=== PATIENT | female | born 1955 | race African-American/Black ===

== ENCOUNTER 2016-10-18 07:58 | Emergency (ER) | payer MEDICARE, MEDICAID ==
[2015-03-16 08:35] VITALS: BMI 28.9
[~2016-10-18 07:58] MED LIST: CARAFATE1 G PO; K-DUR20 MEQ PO; PEPCID20 MG PO; PRAVACHOL20 MG PO; XANAX0.5 MG PO; ZANAFLEX2 M1 PO
[2016-10-18 08:42] LABS: BASOPHILS 0.5 % (0.0-2.0); HEMATOCRIT 39.6 % (36.0-48.0); HEMOGLOBIN 12.4 g/dL (12-16); IMMATURE GRANULOCYTES 0.5 % (0-5); LYMPHOCYTES 22.5 % (15-50); MCH 21.5 pg (26.0-34.0); MCHC 31.3 g/dL (31.0-37.0); MCV 68.5 fL (80.0-100.0); MONOCYTES 7.3 % (2-11); NEUTROPHILS 65.2 % (40-80); PLATELET COUNT 349 10x3/uL (130-400); RBC 5.78 10x6/uL (4.00-5.40); RDW 16.2 % (11.5-14.5); WBC 5.8 10x3/uL (4.8-10.8)
[2016-10-18 09:05] LABS: ALBUMIN 3.7 g/dL (3.4-5.0); ALKALINE PHOSPHATASE 56 U/L (46-116); ALT (SGPT) 26 U/L (10-68); BILIRUBIN - TOTAL 0.27 mg/dL (0.2-1.3); CALC OSMOLALITY 286 mosm/kg (275-300); CALCIUM 9.3 mg/dL (8.5-10.1); CARBON DIOXIDE 26.9 mmol/L (21.0-32.0); CHLORIDE - SERUM 106 mmol/L (98-107); CREATININE - SERUM 1.2 mg/dL (0.6-1.3); GLUCOSE 118 mg/dL (74-106); POTASSIUM - SERUM 4.2 mmol/L (3.5-5.1); PROTEIN - SERUM 8.2 g/dL (6.4-8.2); SODIUM 144 mmol/L (136-145); UREA NITROGEN 9 mg/dL (7-18); eGFR NON AFRICAN AMERICAN 48 mL/min (90-120)
[2016-10-18 09:24] LABS: CREATINE KINASE 438 UL (21-215)
[2016-10-18 09:25] LABS: CKMB 2.4 U/L (0.0-3.6); TROPONIN-I < 0.017 ng/mL (0.000-0.060)
== END 2016-10-18 09:48 | disposition home or self-care (01) ==
LOC: D.ER 07:58
PROVIDERS: Family Medicine
DX: M54.12 Radiculopathy, cervical region (principal); F41.9 Anxiety disorder, unspecified; K21.9 Gastro-esophageal reflux disease without esophagitis; I10 Essential (primary) hypertension

== ENCOUNTER → 2016-11-22 18:03 | Outpatient (CLI) | payer MEDICARE, MEDICAID ==
[2015-03-16 08:35] VITALS: BMI 28.9
[2016-11-26 21:07] LABS: CHLAMYDIA TRACHOMATIS, NAA Negative (Negative)
== END | disposition home or self-care (01) ==
LOC: D.LABREF 18:03
PROVIDERS: Family Medicine
DX: Z20.9 Contact with and (suspected) exposure to unspecified communicable disease (principal)

== ENCOUNTER → 2016-12-09 08:53 | Outpatient (CLI) | payer MEDICARE, MEDICAID ==
[2015-03-16 08:35] VITALS: BMI 28.9
== END ==
LOC: D.MAMMO 08:53
DX: Z12.31 Encounter for screening mammogram for malignant neoplasm of breast (principal)

== ENCOUNTER → 2016-12-20 17:28 | Outpatient (CLI) | payer MEDICARE, MEDICAID ==
[2015-03-16 08:35] VITALS: BMI 28.9
== END | disposition home or self-care (01) ==
LOC: D.LABREF 17:28
DX: R30.0 Dysuria (principal)

== ENCOUNTER → 2016-12-27 13:54 | Outpatient (CLI) | payer MEDICARE, MEDICAID ==
[2015-03-16 08:35] VITALS: BMI 28.9
== END | disposition home or self-care (01) ==
LOC: D.LABREF 13:54
DX: R39.9 Unspecified symptoms and signs involving the genitourinary system (principal)

== ENCOUNTER → 2017-01-14 19:20 | Outpatient (CLI) | payer MEDICARE, MEDICAID ==
[2015-03-16 08:35] VITALS: BMI 28.9
== END | disposition home or self-care (01) ==
LOC: D.LABREF 19:20
DX: N39.0 Urinary tract infection, site not specified (principal)

== ENCOUNTER → 2017-02-21 18:00 | Outpatient (CLI) | payer MEDICARE, MEDICAID ==
[2015-03-16 08:35] VITALS: BMI 28.9
[2017-02-21 18:47] LABS: APPEARANCE HAZY (CLEAR); BILIRUBIN NEGATIVE (NEGATIVE); COLOR YELLOW (YELLOW); GLUCOSE NEGATIVE (NEGATIVE); KETONE NEGATIVE (NEGATIVE); LEUKOCYTE ESTERASE 2+ (NEGATIVE); NITRITE NEGATIVE (NEGATIVE); PROTEIN NEGATIVE (NEGATIVE); UROBILINOGEN NORMAL (NORMAL)
[2017-02-21 18:49] LABS: BACTERIA MANY /hpf (NONE SEEN); WHITE CELLS - URINE >50 /hpf (0-5)
== END | disposition home or self-care (01) ==
LOC: D.LABREF 18:00
PROVIDERS: Urology
DX: N39.0 Urinary tract infection, site not specified (principal)

== ENCOUNTER → 2017-03-07 19:01 | Outpatient (CLI) | payer MEDICARE, MEDICAID ==
[2015-03-16 08:35] VITALS: BMI 28.9
[2017-03-07 20:10] LABS: COLOR YELLOW (YELLOW)
[2017-03-07 20:11] LABS: APPEARANCE CLEAR (CLEAR); BILIRUBIN NEGATIVE (NEGATIVE); GLUCOSE NEGATIVE (NEGATIVE); KETONE NEGATIVE (NEGATIVE); LEUKOCYTE ESTERASE NEGATIVE (NEGATIVE); NITRITE NEGATIVE (NEGATIVE); PROTEIN NEGATIVE (NEGATIVE); UROBILINOGEN NORMAL (NORMAL)
== END | disposition home or self-care (01) ==
LOC: D.LABREF 19:01
PROVIDERS: Urology
DX: N39.0 Urinary tract infection, site not specified (principal)

== ENCOUNTER → 2017-03-12 19:22 | Outpatient (CLI) | payer MEDICARE, MEDICAID ==
[2015-03-16 08:35] VITALS: BMI 28.9
== END | disposition home or self-care (01) ==
LOC: D.LABREF 19:22
DX: N39.0 Urinary tract infection, site not specified (principal); N89.8 Other specified noninflammatory disorders of vagina

== ENCOUNTER → 2017-03-24 18:21 | Outpatient (CLI) | payer MEDICARE, MEDICAID ==
[2015-03-16 08:35] VITALS: BMI 28.9
== END | disposition home or self-care (01) ==
LOC: D.LABREF 18:21
DX: N39.0 Urinary tract infection, site not specified (principal)

== ENCOUNTER → 2018-01-28 08:02 | Outpatient (CLI) | payer MEDICARE, MEDICAID ==
[2015-03-16 08:35] VITALS: BMI 28.9
[~2018-01-28 08:02] MED LIST changes: +BACLOFEN10 MG PO; +BAYER CHEWABLE81 MG PO; +NORVASC5 MG PO; +OMEPRAZOLE20 M1 PO; +PLAVIX75 MG PO; +ZYRTEC10 MG PO
== END | disposition home or self-care (01) ==
LOC: D.CT 08:02
DX: R91.8 Other nonspecific abnormal finding of lung field (principal)

== ENCOUNTER 2018-03-04 08:48 | Outpatient (CLI) | payer MEDICARE, MEDICAID ==
[~2018-03-04] VITALS: Ht 157.5 cm; Wt 78.2 kg
--- NOTE | ~2018-03-04 | DS ---
PATIENT:SHAYLEE WILLS :53 MEDICAL RECORD: [id number] DISCHARGE SUMMARY ADMISSION DATE: 03/04/18 DISCHARGE DATE: 03/05/18 DATE OF DISCHARGE: 03/05/2018 DIAGNOSES: 1. Coronary artery disease. 2. Percutaneous transluminal coronary angioplasty stent of left anterior descending and right coronary artery this admission. 3. Hypertension. 4. Hyperlipidemia. HOSPITAL COURSE: Ms. Wills presents with anginal symptomatology, found to have disease of the LAD and RCA, underwent successful PTCA stent of both territories, was discharged home with the addition of aspirin and Plavix to her medical regimen. Will follow up with [facility] in 1 month. TRANSINT:[id number] Voice Confirmation ID: [id number] DOCUMENT ID: [id number] IVONNE CHAN MD at 1950 CC: [id number] DICTATION DATE: 03/05/18 1251 IMPORTER OR EXPORTER: 03/05/18 1302 DEP CLI 03/05/18 [address] [place] [address]
--- NOTE | ~2018-03-04 | HEMODYNAMI ---
PATIENT:SHAYLEE WILLS MEDICAL RECORD: [id number] : 53 LOCATION:D. D.2118 [facility]# [id number] ADMISSION DATE: 03/04/18 Generatedon:03/05/201812:56 Patient name: SHAYLEE WILLS Patient #: [id number] SSN: [id number] : 1955 Date of study: 03/05/2018 Page: Of Hemodynamic Procedure Report Patient Data Patient Demographics Procedure consent was obtained First Name: SHAYLEE Gender: Female Last Name: JOHANN : 1955 [facility] Initial: ARVIN Age: 62 year(s) Patient #: [id number] Race: Black SSN: [id number] Additional ID: [id number] Contact details Address: [address] [place] [address] ROAD State: [place] City: [place] Zip code: [address] Admission Admission Data Admission Date: 03/04/2018 Admission Time: 8:48 Arrival Date: 03/04/2018 Arrival Time: 8:48 Admit Source: Other Insurance Payor: Medicare, Room #: D.2118 Medicaid Procedure Procedure Types Cath Procedure PCI Procedure Coronary Stent Coronary Stent Initial Procedure Description Procedure Date Procedure Date: 03/05/2018 Procedure Start Time: 12:42 Procedure End Time: 12:49 Procedure Staff Name Function Abdiel Fernando MD Performing Physician Edel Barr RT Monitor Rick Rowland RT Scrub Celestina Yoder RN Nurse Procedure Data Cath Procedure Fluoroscopy Diagnostic fluoroscopy Total fluoroscopy Time: 1.1 time: 1.1 min min Diagnostic fluoroscopy Total fluoroscopy dose: 148 dose: 148 mGy mGy Contrast Material Contrast Material Type Amount (ml) Isovue 300 50 Entry Location Entry Primary Successful Side Size Upsize Upsize Entry Closure Succes sful Closure Location (Fr) 1 (Fr) 2 (Fr) Remarks Device Remarks Femoral Right 6 Fr Exoseal artery Short Estimated blood loss: 5 ml Procedure Complications No complications Procedure Medications Medication Administration Route Dosage Oxygen etCO2 Nasal cannula 2 l/min Solumedrol I.V. 125 mg Lidocaine 2% added to field 20 Heparin Flush Bag added to field 2 bags (1000units/500ml NS) 0.9% NaCl I.V. 100 ml/hr Pepcid I.V. 20 mg Versed I.V. 2 mg Fentanyl I.V. 100 mcg Versed I.V. 2 mg Fentanyl I.V. 100 mcg Heparin Bolus I.V. 4000 units Versed I.V. 0.5 mg Fentanyl I.V. 25 mcg Hemodynamics Rest Heart Rate: 96 (bpm) Snapshots Pre Cath Intra NCS Post Cath Vital Signs Time Heart Resp SPO2 etCO2 NIBP (mmHg) Rhythm Pain Sedation Rate (ipm) (%) (mmHg) Status Level (bpm) 11:57:27 10 96 0 No Cuff NSR 0 (11) 10(A) , No pain 12:01:34 103 24 96 0 157/88(144) NSR 0 (11) 10(A) , No pain 12:05:43 101 15 93 0 144/98(114) NSR 0 (11) 10(A) , No pain 12:09:46 92 14 96 34.5 138/96(112) NSR 0 (11) 10(A) , No pain 12:13:48 88 15 95 40.6 144/96(117) NSR 0 (11) 10(A) , No pain 12:17:52 87 15 96 27 141/96(108) NSR 0 (11) 10(A) , No pain 12:21:55 89 12 96 16.5 134/88(104) NSR 0 (11) 10(A) , No pain 12:25:59 88 15 93 0 123/85(107) NSR 0 (11) 10(A) , No pain 12:29:57 87 10 94 30.8 131/90(111) NSR 0 (11) 10(A) , No pain 12:33:56 88 15 97 14.2 130/89(108) NSR 0 (11) 10(A) , No pain 12:37:56 84 13 98 42.8 142/91(106) NSR 0 (11) 10(A) , No pain 12:42:02 88 14 94 0 115/85(108) NSR 0 (11) 9(A) , No pain 12:45:55 88 13 95 13 127/93(122) NSR 0 (11) 10(A) , No pain Medications Time Medication Route Dose Verified Delivered Reason Notes Effectiveness by by 12:04:47 Oxygen etCO2 2 Abdiel Buffie used for Nasal l/min Abdullahi Yoder RN procedure cannula 12:04:57 Solumedrol I.V. 125 Abdiel Buffie used for pt re ports mg Abdullahi Yoder RN procedure itching of the eyes and sneezing all day/night after [facility] procedure yesterday. 12:06:21 Lidocaine 2% added 20ml Abdiel Abdiel for local to vial Abdullahi Fernando MD anesthetic field 12:06:26 Heparin Flush added 2 Abdiel Abdiel used for Bag to bags Abdullahi Fernando MD procedure (1000units/500ml field NS) 12:06:41 0.9% NaCl I.V. 100 Abdiel Buffie Per physician ml/hr Abdullahi Yoder RN 12:09:54 Pepcid I.V. 20 mg Abdiel Oscar Per physician Abdullahi Yoder RN 12:38:23 Versed I.V. 2 mg Abdiel Buffie for sedation Abdullahi Yoder RN 12:38:30 Fentanyl I.V. 100 Abdiel Buffie for sedation mcg Abdullahi Yoder RN 12:41:33 Versed I.V. 2 mg Abdiel Buffie for sedation Abdullahi Yoder RN 12:41:37 Fentanyl I.V. 100 Abdiel Buffie for sedation mcg Abdullahi Yoder RN 12:43:50 Heparin Bolus I.V. 4000 Abdiel Buffie for verif ied units Abdullahi Yoder RN anticoagulation with dr fernando 12:46:00 Versed I.V. 0.5 Abdiel Buffie for sedation mg Abdullahi Yoder RN 12:46:04 Fentanyl I.V. 25 Abdiel Buffie for sedation mcg Abudllahi Yoder RN Procedure Log Time Note 11:38:59 Informed consent obtained and on chart 11:39:14 Diagnostic Cath Status : Elective 11:39:46 Edel Barr RT(R) sent for patient. Start room use. 11:39:46 Time tracking: Regular hours (M-F 7:00 - 5:00) 11:39:51 Plan of Care:Hemodynamics will remain stable., Cardiac rhythm will remain stable., Comfort level will be maintained., Respiratory function will remain adequate., Patient/ family verbilizes understanding of procedure., Procedure tolerated without complication., Recovers from procedure without complications.. 11:40:29 Admit Source: Other 11:40:35 Arrival Date: 03/04/2018 8:48:00 AM 11:40:43 Insurance Payor : Medicare, Medicaid 11:54:38 Patient received from PCU to [facility] 2 Alert and oriented. Tansferred to table in Supine position. 11:54:39 Warm blankets applied, and irwin hugger turned on for patient comfort. 11:54:40 Correct patient and procedure confirmed by team. 11:54:41 ECG and BP/O2 sat monitors applied to patient. 11:56:37 Vital chart was started 12:04:05 Baseline sample Acquired. 12:04:08 Rhythm: sinus rhythm 12:04:10 Full Disclosure recording started 12:04:13 H&P Date Dictated: 03/05/2018 Within 30 days and on chart.. 12:04:15 Pre-procedure instructions explained to patient. 12:04:16 Pre-op teaching completed and patient verbalized understanding. 12:04:17 Family in waiting room. 12:04:18 Patient NPO since Midnight. 12:04:20 Is the patient allergic to Iodine/contrast media? No. 12:04:21 Was the patient premedicated? No 12:04:22 Is patient on blood thinner?Yes 12:04:24 ACC The patient was administered the following blood thiners within the last 24 hours: ACCPlavix 12:04:26 Patient diabetic? No. 12:04:29 Previous problem with sedation/anesthesia? No ? 12:04:30 Snore? Yes 12:04:36 Sleep apnea? No 12:04:37 Deviated septum? No 12:04:38 Opens mouth fully? Yes 12:04:39 Sticks out tongue? Yes 12:04:40 Airway obstruction? No ? 12:04:44 Dentures? Yes in tight 12:04:47 Oxygen 2 l/min etCO2 Nasal cannula was administered by Celestina Yoder RN; used for procedure; 12:04:48 Pre procedure: right dorsailis pedis pulse 2+ Normal; easily identifiable; not easily obliterated 12:04:51 Pre procedure: left dorsailis pedis pulse 2+ Normal; easily identifiable; not easily obliterated 12:04:57 Solumedrol 125 mg I.V. was administered by Celestina Yoder RN; used for procedure; pt reports itching of the eyes and sneezing all day/night after [facility] procedure yesterday. 12:04:57 Patient pain scale 0/10 ?. 12:05:05 IV patent on arrival in left antecubital with 0.9% NaCl at [facility] 12:05:08 Lab results completed and on chart. 12:05:13 Right groin area was prepped with chlora-prep and draped in sterile fashion 12:05:14 Alarms reviewed by R. N. 12:05:14 Sharps counted by scrub and verified by R.N. 12:06:21 Lidocaine 2% 20ml vial added to field was administered by Abdiel Fernando MD; for local anesthetic; 12:06:26 Heparin Flush Bag (1000units/500ml NS) 2 bags added to field was administered by Abdiel Fernando MD; used for procedure; 12:06:41 0.9% NaCl 100 ml/hr I.V. was administered by Celestina Yoder RN; Per physician; 12:07:00 Use device set Radial Dx or PCI 12:07:01 ACIST Syringe (15871) opened to sterile field. 12:07:02 Medline Cath Pack ([id number]) opened to sterile field. 12:07:02 Bag Decanter (2002S) opened to sterile field. 12:07:03 DIAGNOSTIC WIRE .035 260cm J wire (557216) opened to sterile field. 12:07:03 ACIST Hand Control (36208) opened to sterile field. 12:07:04 ACIST Manifold (44456) opened to sterile field. 12:07:04 Tegaderm 4 x 4 (1626W) opened to sterile field. 12:07:34 CHOICE PT Extra Support 182cm wire ([id number]) opened to sterile field. 12:07:35 INFLATOR Merit BasixCompak (BX1912) opened to sterile field. 12:07:36 SHEATH Prelude 6Fr 0.035 ([id number]-3Z-81-035) opened to sterile field. 12:09:54 Pepcid 20 mg I.V. was administered by Celestina Yoder RN; Per physician; 12:11:12 Zero performed for pressure channel P1 12::19 Zero performed for pressure channel P1 12:37: Physician arrived 12:: --------ALL STOP TIME OUT------ 12::23 Final Timeout: patient, procedure, and site verified with staff and physician. All members of the team are in agreement. 12:37:24 Right groin site verified by team. 12:37:27 Physical assessment completed. ASA score P 2 - A patient with mild systemic disease as per Abdiel Fernando MD. 12:37:35 Sedation plan: IV Moderate Sedation Medication:Versed, Fentanyl 12:38:23 Versed 2 mg I.V. was administered by Celestina Yoder RN; for sedation; 12:38:30 Fentanyl 100 mcg I.V. was administered by Celestina Yoder RN; for sedation; 12:41:33 Versed 2 mg I.V. was administered by Celestina Yoder RN; for sedation; 12:41:37 Fentanyl 100 mcg I.V. was administered by Celestina Yoder RN; for sedation; 12:42:13 Procedure started. 12:42:54 Local anesthetic to right femoral artery with Lidocaine 2% by Abdiel Fernando MD.INITIAL ACCESS ONLY 12:43:09 A 6 Fr Short sheath was inserted into the Right Femoral artery 12:43:31 GUIDE 6FR HS II SH catheter ([id number]) opened to sterile field. 12:43:39 6 Fr hs 2 sh guide catheter was inserted over the wire 12:43:43 choice pt wire advanced. 12:43:50 Heparin Bolus 4000 units I.V. was administered by Celestina Yoder RN; for anticoagulation; verified with dr fernando 12:44:11 Wire advanced across lesion. 12:46:00 Versed 0.5 mg I.V. was administered by Celestina Yoder RN; for sedation; 12:46:02 Place stent Inflation Number: 1 A KIN RX 3.0 x 18 stent ([id number]) was prepped and advanced across the Mid RCA. The stent was deployed at 13 EVELIN for 0:10 (min:sec). 12:46:04 Fentanyl 25 mcg I.V. was administered by Celestina Yoder RN; for sedation; 12:46:45 Stent catheter was removed intact over wire. 12:46:46 Wire removed. 12:46:46 Guide catheter removed. 12:47:56 EXOSEAL 6Fr (EX600) opened to sterile field. 12:48:04 Sheath removed intact; hemostasis achieved with Exoseal to the Right Femoral artery. 12:48:05 Procedure ended.(Physican Out) 12:48:22 Fluoroscopy time 01.10 minutes. 12:48:26 Flurop Dose total: 148 12:48:26 Fluoroscopy dose: 148 mGy 12:48:29 Contrast amount:Isovue 300 50ml. 12:48:30 Sharps counted by scrub and verified by R.N. 12:48:34 Insertion/operative site no bleeding no hematoma. 12:48:36 Post-op/insertion site Right Femoral artery dressed using a 4 x 4 and Tegaderm. 12:48:39 Post right femoral artery:stable 12:48:40 Post Procedure Pulses reassessed and unchanged 12:48:43 Post procedure rhythm: unchanged. 12:48:46 Estimated blood loss: 5 ml 12:48:47 Post procedure instruction explained to patient.Patient verbalizes understanding. 12:48:47 Patient needs reinforcement of post procedure teaching. 12:48:58 Procedure type changed to Cath procedure, PCI procedure, Coronary Stent, Coronary Stent Initial 12:48:59 Procedure and supply charges have been captured, reviewed, submitted and are correct. 12:49:03 Procedure Complication : No complications 12:49:05 Vital chart was stopped 12:49:06 See physician's report for complete and final results. 12:49:08 Report given to [facility]. 12:49:10 Patient transfered to [facility] with Stretcher. 12:49:12 Procedure ended. 12:49:12 Full Disclosure recording stopped 12:49:36 ACC-PCI Only Patient was given prescriptions, or instructed by Abdiel Fernando MD to start/continue the following medications upon discharge: Plavix 12:49:38 End room use (Document Last) Intervention Summary Intervention Notes Time ActionType Lesion and Equipment Used Action# Pressure Duration Attributes 12:46:02 Place stent Mid RCA KNI RX 3.0 x 1 13 00:10 18 stent ([id number]) Device Usage Item Name Manufacture Quantity Catalog Number Hospital Part Current Minimal Lot# / Charge Number Stock Stock Serial# Code ACIST Syringe Acist 1 77438 275702 711196 613925 20 (41070) [employer] Medline Cath Cardinal 1 [id number] [id number] 30276 675994 5 [facility] ([id number]) Bag Decanter Microtek 1 2001S 762492 70826 815681 5 (2001S) Medical Inc. DIAGNOSTIC WIRE St Lam 1 187099 627105 346377 284529 30 .035 260cm J wire (024613) ACIST Hand Acist 1 06069 342846 601358 741048 5 Control (16800) [employer] Inc ACIST Manifold Acist 1 22484 794315 271630 632497 5 (50875) [employer] Inc Tegaderm 4 x 4 3M 1 1626W 558777 208929 293128 5 (1626W) CHOICE PT Extra [place] 1 [id number] 301430 022833 044411 5 Support 182cm Scientific wire ([id number]) INFLATOR Merit Merit 1 CX1200 987824 626721 983388 15 [employer] Medical ([id number]) SHEATH Prelude Merit 1 OLG-3A-17-35 868869 7787874 502113 5 6Fr 0.035 Medical (DYV-7P-98-035) GUIDE 6FR HS II Medtronic 1 [id number] 252266 78815 511861 1 SH catheter ([id number]) KIN RX 3.0 x Medtronic 1 [id number] 121755 5694086 654864 5 [id number] 18 stent ([id number]) EXOSEAL 6Fr Cardinal 1 EX600 402254 008869 901321 10 (EX600) Health Signature Audit [place] Stage Time Signature Unsigned Intra-Procedure 03/05/2018 Edel Barr 12:56:44 PM RT(R) Signatures Monitor : Edel Barr RT Signature : Date : Time : [facility] [address] [facility] [place] [address]
--- NOTE | ~2018-03-04 | OP ---
PATIENT NAME: SHAYLEE WILLS MEDICAL RECORD: [id number] :53 LOCATION:D.CAT ADMISSION DATE: SURGEON: IVONNE CHAN MD DATE OF OPERATION: 03/05/2018 DATE OF SERVICE: 03/05/2018 PROCEDURES: 1. PTCA stent RCA. 2. Selective coronary angiography. INDICATION: Angina and coronary artery disease. PROCEDURE IN DETAIL: After informed consent was obtained and after a detailed description of the risks, benefits as well as alternative therapies, the patient elected to proceed with angiogram and angioplasty. The right femoral area was prepped and draped in normal sterile fashion. Right femoral artery was cannulated via modified Seldinger technique with placement of 6-Sudanese sheath. All catheters exchanged through this sheath. FINDINGS: The right coronary has 80% stenosis in the mid vessel. This was addressed with a 3.0 x 18 mm Jeff. Result was 0% residual stenosis. OVERALL IMPRESSION: Successful percutaneous transluminal coronary angioplasty stent of the right coronary going from 80% initial stenosis to 0% residual. TRANSINT:[id number] Voice Confirmation ID: [id number] DOCUMENT ID: [id number] IVONNE CHAN MD at 1950 CC: [id number] DICTATION DATE: 03/05/18 1250 ELECTRIC WELDER HELPER: 03/05/18 1255 DEP CLI 03/05/[address] [address]
--- NOTE | ~2018-03-04 | HEMODYNAMI ---
PATIENT:SHAYLEE WILLS MEDICAL RECORD: [id number] : 53 LOCATION:[facility] ADMISSION DATE: 03/04/18 Generatedon:03/04/201812:03 Patient name: SHAYLEE WILLS Patient #: [id number] SSN: DO B: 1955 Date of study: 03/04/2018 Page: Of Hemodynamic Procedure Report Patient Data Patient Demographics Procedure consent was obtained First Name: SHAYLEE Gender: Female Last Name: JOHANN : 1955 [facility] Initial: ARVIN Age: 62 year(s) Patient #: [id number] Race: Black Additional ID: [id number] Contact details [address]: [address] [place] [address] ROAD State: [place] City: [place] Zip code: [address] Admission Admission Data Admission Date: 03/04/2018 Admission Time: 8:48 Procedure Procedure Types Cath Procedure Diagnostic Procedure LHC LHC w/Coronaries PCI Procedure Coronary Stent Coronary Stent Initial Procedure Description Procedure Date Procedure Date: 03/04/2018 Procedure Start Time: 11:40 Procedure End Time: 12:02 Procedure Staff Name Function Roderick Norton MD Ordering physician Abdiel Fernando MD Performing Physician Edel Barr RT Monitor Celestina Yoder RN Nurse Nadya Ivy RT Scrub Gibson Nova RT Monitor Procedure Data Cath Procedure Fluoroscopy Diagnostic fluoroscopy Total fluoroscopy Time: 3.8 time: 3.8 min min Diagnostic fluoroscopy Total fluoroscopy dose: dose: 192.39 mGy 192.39 mGy Contrast Material Contrast Material Type Amount (ml) Isovue 300 77 Entry Location Entry Primary Successful Side Size Upsize Upsize Entry Closure Barlow ccessful Closure Location (Fr) 1 (Fr) 2 (Fr) Remarks Device Remarks Radial Right 6 Fr Mechanical artery Short Compression Estimated blood loss: 20 ml Diagnostic catheters Device Type Used For End Catheter Placement DIAGNOSTIC [place] 110cm 5 Multi-vessel Fr catheter ([id number]) Angiography Procedure Medications Medication Administration Route Dosage Oxygen etCO2 Nasal cannula 2 l/min Lidocaine 2% added to field 20 Heparin Flush Bag added to field 2 bags (1000units/500ml NS) 0.9% NaCl I.V. 100 ml/hr Versed I.V. 2 mg Fentanyl I.V. 100 mcg Radial Cocktail I.A. 1 syringe (Verapomil 2mg/Nitro 400mcg/Heparin 1500units) Heparin Bolus I.V. 4000 units Integrilin (Bolus I.V. 6.8 ml 2mg/ml) Versed I.V. 2 mg Fentanyl I.V. 50 mcg Plavix P.O. 600 mg Hemodynamics Rest Heart Rate: 70 (bpm) Pressure Samples Time Site Value (mmHg) Purpose Heart Use Rate(bpm) 11:42 LV 82/34,40 Snapshot 73 Snapshots Pre Cath Intra NCS Post Cath Vital Signs Time Heart Resp SPO2 etCO2 NIBP (mmHg) Rhythm Pain Sedation Rate (ipm) (%) (mmHg) Status Level (bpm) 11:20:27 68 15 97 0 135/88(116) NSR 0 (11) 10(A) , No pain 11:24:28 71 28 98 0 129/89(120) NSR 0 (11) 10(A) , No pain 11:28:32 65 18 94 0 124/79(97) NSR 0 (11) 10(A) , No pain 11:32:34 62 18 96 39.9 115/76(95) NSR 0 (11) 10(A) , No pain 11:36:32 66 15 94 37.6 109/80(101) NSR 0 (11) 10(A) , No pain 11:40:27 67 17 92 24.8 117/83(94) NSR 0 (11) 10(A) , No pain 11:44:27 78 17 93 10.5 102/75(92) NSR 0 (11) 9(A) , No pain 11:48:22 72 16 93 31.6 100/73(92) NSR 0 (11) 9(A) , No pain 11:52:18 72 15 94 33.9 111/73(99) NSR 0 (11) 9(A) , No pain 11:56:15 69 19 93 38.4 111/76(100) NSR 0 (11) 10(A) , No pain 12:00:13 69 5 97 8.2 100/75(92) NSR 0 (11) 10(A) , No pain Medications Time Medication Route Dose Verified Delivered Reason Not es Effectiveness by by 11:29:33 Oxygen etCO2 2 l/min Abdiel Oscar used for Nasal Abdullahi Yoder RN procedure cannula 11:29:41 Heparin Flush added 2 bags Abdiel Meadows used for Bag to Abdullahi Fernando MD procedure (1000units/500ml field NS) 11:29:41 Lidocaine 2% added 20ml Abdiel Meadows used for to vial Abdullahi Fernando MD procedure field 11:29:50 0.9% NaCl I.V. 100 Abdiel Oscar Per physician ml/hr Abdullahi Yoder RN 11:39:42 Versed I.V. 2 mg Abdiel Oscar for sedation Abdullahi Yoder RN 11:39:49 Fentanyl I.V. 100 mcg Abdiel Oscar for sedation Abdullahi Yoder RN 11:39:55 Radial Cocktail I.A. 1 Abdiel Meadows for (Verapomil syringe Abdullahi Fernando MD vasodilation 2mg/Nitro 400mcg/Heparin 1500units) 11:44:24 Versed I.V. 2 mg Abdiel Oscra for sedation Abdullahi Yoder RN 11:44:29 Fentanyl I.V. 50 mcg Abdiel Oscar for sedation Abdullahi Yoder RN 11:48:20 Heparin Bolus I.V. 4000 Abdiel Oscar for herb ified units Abdullahi Yoder RN anticoagulation with dr fernando 11:49:03 Integrilin I.V. 6.8 ml Abdiel Oscar for was alison (Bolus 2mg/ml) Abdullahi Yoder RN antiplatelet 3.2 ml therapy of vial 11:56:58 Plavix P.O. 600 mg Abdiel Oscar for Abdullahi Yoder RN antiplatelet therapy Procedure Log Time Note 10:47:46 Diagnostic Cath status Elective 10:47:52 Nadya Ivy RT(R) sent for patient. Start room use. 10:47:53 Time tracking: Regular hours (M-F 7:00 - 5:00) 11:01:30 Plan of Care:Hemodynamics will remain stable., Cardiac rhythm will remain stable., Comfort level will be maintained., Respiratory function will remain adequate., Patient/ family verbilizes understanding of procedure., Procedure tolerated without complication., Recovers from procedure without complications.. 11:01:38 Patient received from Pre/Post Procedure Room to CCL 3 Alert and oriented. Tansferred to table in Supine position. 11:01:39 Warm blankets applied, and irwin hugger turned on for patient comfort. 11::39 Correct patient and procedure confirmed by team. 11:01:40 Signed procedure consent form obtained from patient. 11::41 ECG and BP/O2 sat monitors applied to patient. 11:19:22 Baseline sample Acquired. 11:19:22 Vital chart was started 11:19:26 Rhythm: sinus rhythm 11:19:28 Full Disclosure recording started 11:19:32 H&P Date Dictated: 03/04/2018 Within 30 days and on chart., H&P Addendum completed by physician on day of procedure. (MUST COMPLETE FOR ALL OUTPATIENTS). 11:19:33 Pre-procedure instructions explained to patient. 11:19:34 Pre-op teaching completed and patient verbalized understanding. 11:19:35 Family in waiting room. 11:19:38 Patient NPO since Midnight. 11:19:39 Is the patient allergic to Iodine/contrast media? No. 11:19:40 Was the patient premedicated? No 11:19:42 Is patient on blood thinner?No 11:19:44 Patient diabetic? No. 11:19:48 Previous problem with sedation/anesthesia? No ? 11:19:52 Snore? Yes 11:19:54 Sleep apnea? No 11:19:56 Deviated septum? No 11:19:56 Opens mouth fully? Yes 11:19:57 Sticks out tongue? Yes 11:19:59 Airway obstruction? No ? 11:20:03 Dentures? Yes in tight 11:20:08 Pre procedure: right dorsailis pedis pulse 2+ Normal; easily identifiable; not easily obliterated 11:20:12 Pre procedure: left dorsailis pedis pulse 2+ Normal; easily identifiable; not easily obliterated 11:20:41 Patient pain scale 0/10 ?. 11:20:50 IV patent on arrival in left antecubital with 0.9% NaCl at O. 11:20:52 Lab results completed and on chart. 11:20:59 Right Radial & Right Groin area was prepped with chlora-prep and draped in sterile fashion 11:21:00 Alarms reviewed by RMaday N. 11:21:00 Sharps counted by scrub and verified by R.N. 11::33 Oxygen 2 l/min etCO2 Nasal cannula was administered by Celestina Yoder RN; used for procedure; ::41 Heparin Flush Bag (1000units/500ml NS) 2 bags added to field was administered by Abdiel Fernando MD; used for procedure; ::41 Lidocaine 2% 20ml vial added to field was administered by Abdiel Fernando MD; used for procedure; 11::50 0.9% NaCl 100 ml/hr I.V. was administered by Celestina Yoder RN; Per physician; :39:31 Physician arrived ::32 --------ALL STOP TIME OUT------ :39:32 Final Timeout: patient, procedure, and site verified with staff and physician. All members of the team are in agreement. 11:39:34 Right Radial & Right Groin site verified by team. 11:39:38 Physical assessment completed. ASA score P 2 - A patient with mild systemic disease as per Abdiel Fernando MD. 11:39:41 Sedation plan: IV Moderate Sedation Medication:Versed, Fentanyl 11:39:42 Versed 2 mg I.V. was administered by Celestina Yoder RN; for sedation; 11:39:47 Use device set Radial Dx or PCI 11:39:48 ACIST Syringe (64470) opened to sterile field. 11:39:48 Medline Cath Pack ([id number]) opened to sterile field. 11:39:49 Fentanyl 100 mcg I.V. was administered by Celestina Yoder RN; for sedation; 11:39:49 Bag Decanter () opened to sterile field. 11:39:49 DIAGNOSTIC WIRE .035 260cm J wire (616374) opened to sterile field. 11:39:49 ACIST Hand Control (17915) opened to sterile field. 11:39:50 ACIST Manifold (53355) opened to sterile field. 11:39:50 Tegaderm 4 x 4 (1626W) opened to sterile field. 11:39:51 MBrace Wrist Support ([id number]) opened to sterile field. 11:39:52 SHEATH 6Fr Prelude Radial ([id number]) opened to sterile field. 11:39:55 Radial Cocktail (Verapomil 2mg/Nitro 400mcg/Heparin 1500units) 1 syringe I.A. was administered by Abdiel Fernando MD; for vasodilation; 11:40:21 Procedure started. 11:40:25 Local anesthetic to right radial artery with Lidocaine 2% by Abdiel Fernando MD.INITIAL ACCESS ONLY 11:40:34 A 6 Fr Short sheath was inserted into the Right Radial artery 11:41:14 A DIAGNOSTIC [place] 110cm 5 Fr catheter (045031) was advanced over the wire and used for Multi-vessel Angiography. 11:43:01 LV hemodynamics recorded. 11:43:02 LV gram done using [place] 11:43:11 EF : 60 % 11:43:19 RCA angiography performed. 11:43:27 Injector settings: Ml/sec: 3, Volume: 6, 11:43:29 Catheter removed. 11:44:00 CHOICE PT Extra Support 182cm wire ([id number]) opened to sterile field. 11:44:01 INFLATOR Merit BasixCompak (LF1829) opened to sterile field. 11:44:24 Versed 2 mg I.V. was administered by Celestina Yoder RN; for sedation; 11:44:29 Fentanyl 50 mcg I.V. was administered by Celestina Yoder RN; for sedation; 11:45:40 GUIDE 6FR EBU 3.0 catheter ([id number]) opened to sterile field. 11:46:13 6 Fr ebu 3 guide catheter was inserted over the wire 11:46:17 LCA angiography performed. 11:46:19 Injector settings: Ml/sec: 3, Volume: 6, 11:48:20 Heparin Bolus 4000 units I.V. was administered by Celestina Yoder RN; for anticoagulation; verified with dr fernando 11:49:03 Integrilin (Bolus 2mg/ml) 6.8 ml I.V. was administered by Celestina Yoder RN; for antiplatelet therapy; wasted 3.2 ml of vial 11:50:25 choice wire advanced. 11:50:27 Wire advanced across lesion. 11:51:06 Place stent Inflation Number: 1 A KIN RX 2.0 x 12 stent ([id number]) was prepped and advanced across the 1st Diag. The stent was deployed at 11 EVELIN for 0:10 (min:sec). 11:51:54 TR BAND Standard ([id number]) opened to sterile field. 11:54:52 Stent catheter was removed intact over wire. 11:54:53 Wire removed. 11:54:54 Guide catheter removed. 11:55:08 Sheath removed intact; hemostasis achieved with Mechanical Compression to the Right Radial artery. 11:55:12 Procedure ended.(Physican Out) 11:55:31 Fluoroscopy time 03.80 minutes. 11:56:04 Fluoroscopy dose: 192.39 mGy 11:56:04 Flurop Dose total: 192.39 11:56:10 Contrast amount:Isovue 300 77ml. 11:56:13 Sharps counted by scrub and verified by R.N. 11:56:20 TR band inflated with 12cc of air. 11:56:22 Insertion/operative site no bleeding no hematoma. 11:56:27 Post right radial artery:stable 11:56:35 Post-procedure physical assessment completed. ASA score P 2 - A patient with mild systemic disease as per Abdiel Fernando MD. 11:56:39 Post procedure rhythm: sinus rhythm 11:56:45 Estimated blood loss: 20 ml 11:56:48 Post procedure instruction explained to patient.Patient verbalizes understanding. 11:56:49 Patient needs reinforcement of post procedure teaching. 11:56:53 Procedure and supply charges have been captured, reviewed, submitted and are correct. 11:56:58 Plavix 600 mg P.O. was administered by Celestina Yoder RN; for antiplatelet therapy; 11:57:13 Procedure type changed to Cath procedure, Diagnostic procedure, LHC, LHC w/Coronaries, PCI procedure, Coronary Stent, Coronary Stent Initial 12:00:44 Vital chart was stopped 12:00:45 See physician's report for complete and final results. 12:02:03 Report given to Pre/Post Procedure Room. 12:02:11 Patient transfered to Pre/Post Procedure Room with Stretcher. 12:02:15 Procedure ended. 12:02:15 Full Disclosure recording stopped 12:02:19 End room use (Document Last) Intervention Summary Intervention Notes Time ActionType Lesion and Equipment Used Action# Pressure Duration Attributes 11:51:06 Place stent 1st Diag KIN RX 2.0 x 1 11 00:10 12 stent ([id number]) Device Usage Item Name Manufacture Quantity Catalog Number Hospital Part Current Minimal Lot# / Charge Number Stock Stock Serial# Code ACIST Syringe Acist 1 94868 272616 443500 [id number] 20 (84987) Medical Systems Inc Medline Cath Cardinal 1 [id number] 731458 50607 279871 5 [facility] ([id number]) Bag Decanter Microtek 1 2001S 848657 21583 713882 5 (2001S) Medical Inc. DIAGNOSTIC WIRE St Lam 1 258686 605005 788374 187283 30 .035 260cm J wire (816418) ACIST Hand Acist 1 12442 702270 973728 927708 5 Control (31865) Medical Systems Inc ACIST Manifold Acist 1 62979 527688 660059 749298 5 (41894) Medical Systems Inc Tegaderm 4 x 4 3M 1 1626W 360711 506583 810288 5 (1626W) MBrace Wrist Advanced 1 140-0250-00 302608 52931 650043 5 Support Vascular ([id number]) Dynamics SHEATH 6Fr Merit 1 [id number] 519772 743338 113317 5 Prelude Radial Medical ([id number]) DIAGNOSTIC Terumo 1 40-7523 459164 617639 805982 5 [place] 110cm 5 Fr catheter (473305) CHOICE PT Extra Diamond 1 [id number] 021921 133072 951806 5 Support 182cm Scientific wire ([id number]) INFLATOR Merit Merit 1 PO5200 547251 180665 508673 15 [facility]Konnects Medical (CK4018) GUIDE 6FR EBU Medtronic 1 [id number] 935275 50976 128033 0 3.0 catheter (WL9TYD67) KIN RX 2.0 x Medtronic 1 [id number] 358370 8204046 182986 5 [id number] 12 stent ([id number]) TR BAND Terumo 1 [id number] 765531 663536 415350 40 Standard ([id number]) Signature Audit [place] Stage Time Signature Unsigned Intra-Procedure 03/04/2018 Gibson Nova 12:03:46 PM RT(R) (CV) Signatures Monitor : Edel Barr RT Signature : Date : Time : Monitor : Gibson Nova RT Signature : Date : Time : [address] [place] [address]
--- NOTE | ~2018-03-04 | OP ---
PATIENT NAME: SHAYLEE WILLS MEDICAL RECORD: [id number] :53 LOCATION:D.CAT ADMISSION DATE: SURGEON: IVONNE CHAN MD DATE OF OPERATION: 03/04/2018 PROCEDURES: 1. PTCA and stent to LAD diagonal. 2. Left heart catheterization. 3. Selective coronary angiography. 4. Left ventriculogram. INDICATION: Angina and coronary artery disease. PROCEDURE IN DETAIL: After informed consent was obtained and after a detailed explanation of the risks, benefits as well as alternative therapies, the patient elected to proceed with angiogram and angioplasty. The right radial area was prepped and draped in normal sterile fashion. Right radial artery was cannulated via modified Seldinger technique with placement of 6-Vietnamese sheath. All catheters exchanged through this sheath. FINDINGS: Left ventriculogram was performed in standard 30-degree [place] view, reveals good cardiac wall motion throughout all limits. Overall ejection fraction estimated 60%. SELECTIVE CORONARY ANGIOGRAPHY: 1. Left main is with no significant angiographic disease. 2. LAD diagonal has a 90% stenosis in it. 3. The left circumflex has mild irregularities, but no flow-limiting stenosis. 4. Right coronary artery has 80% to 90% stenosis mid vessel. PTCA AND STENT OF THE LAD DIAGONAL: The stent used is a 2.0 x 12-mm Jeff. Result was 0% residual stenosis. OVERALL IMPRESSION: Successful PTCA and stent of the LAD diagonal going from 90% initial stenosis to 0% residual. TRANSINT:[id number] Voice Confirmation ID: [id number] DOCUMENT ID: [id number] IVONNE CHAN MD at 1950 CC: [id number] DICTATION DATE: 03/04/18 1157 DRONE PILOT: 03/04/18 1208 DEP CLI 03/05/18 [place] [address]
[~2018-03-04 08:48] MED LIST changes: -BACLOFEN10 MG PO; -BAYER CHEWABLE81 MG PO; -NORVASC5 MG PO; -OMEPRAZOLE20 M1 PO; -PLAVIX75 MG PO; -ZYRTEC10 MG PO
[2018-03-04] MEDS ORDERED: BACLOFEN10 MG PO (09:19)
[2018-03-04] MEDS ORDERED: NORVASC5 MG PO (09:20)
[2018-03-04] MEDS ORDERED: OMEPRAZOLE20 M1 PO (09:21)
[2018-03-04] MEDS ORDERED: ZYRTEC10 MG PO (09:22)
[2018-03-04 09:32] VITALS: BP 124/76; BMI 31.1
[2018-03-04 09:45] LABS: BASOPHILS 0.8 % (0-2); EOSINOPHILS 4.7 % (0-7); HEMATOCRIT 38.9 % (36.0-48.0); HEMOGLOBIN 12.3 g/dL (12-16); LYMPHOCYTES 30.4 % (15-50); MCH 21.3 pg (26.0-34.0); MCHC 31.6 g/dL (31.0-37.0); MCV 67.3 fL (80.0-100.0); MEAN PLATELET VOLUME 10.8 fL (7.4-10.4); MONOCYTES 8.7 % (2-11); NEUTROPHILS 55.4 % (40-80); PLATELET COUNT 333 10x3/uL (130-400); RBC 5.78 10x6/uL (4.00-5.40); RDW 16.7 % (11.5-14.5); WBC 3.6 10x3/uL (4.8-10.8)
[2018-03-04 09:54] LABS: ANION GAP 9.1 mmol/L (8-16); CALCIUM 8.7 mg/dL (8.5-10.1); CARBON DIOXIDE 31.4 mmol/L (21.0-32.0); CREATININE - SERUM 1.1 mg/dL (0.6-1.3); POTASSIUM - SERUM 3.5 mmol/L (3.5-5.1)
[2018-03-04 12:51] VITALS: BP 121/79; Ht 157.5 cm; Wt 78.2 kg
[2018-03-04 15:38] VITALS: BP 130/79
[2018-03-04 20:43] VITALS: BP 112/79
[2018-03-05 06:33] VITALS: BP 129/72
[2018-03-05 07:59] VITALS: BP 112/73
[2018-03-05 11:17] VITALS: BP 134/81
[2018-03-05] MEDS ORDERED: PLAVIX75 MG PO (13:08)
[2018-03-05] MEDS ORDERED: BAYER CHEWABLE81 MG PO (13:08)
== END 2018-03-05 16:55 | disposition home or self-care (01) ==
LOC: D.CATH 08:48 → D.M2 08:48 → D.CATH 11:00 → D.M2 12:39 → D.CLR 03-05 14:32 → D.CATH 03-05 16:55
PROVIDERS: Internal Medicine Interventional Cardiology
DX: I25.119 Atherosclerotic heart disease of native coronary artery with unspecified angina pectoris (principal); I10 Essential (primary) hypertension; E78.5 Hyperlipidemia, unspecified; Z01.812 Encounter for preprocedural laboratory examination
CPT/HCPCS: 93458; C9600 ×2

== ENCOUNTER → 2018-03-19 14:34 | Outpatient (CLI) | payer MEDICARE, MEDICAID ==
[2018-03-04 12:51] VITALS: BMI 31.5
[~2018-03-19 14:34] MED LIST changes: +BACLOFEN10 MG PO; +BAYER CHEWABLE81 MG PO; +NORVASC5 MG PO; +OMEPRAZOLE20 M1 PO; +PLAVIX75 MG PO; +ZYRTEC10 MG PO
== END | disposition home or self-care (01) ==
LOC: D.US 14:34
DX: I82.621 Acute embolism and thrombosis of deep veins of right upper extremity (principal)

== ENCOUNTER 2018-04-25 18:14 | Emergency (ER) | payer MEDICARE, MEDICAID ==
[~2018-04-25] VITALS: Ht 157.5 cm; Wt 76.4 kg
[2018-04-25 18:18] VITALS: Ht 157.5 cm; Wt 76.4 kg
[2018-04-25 18:32] LABS: BASOPHILS 0.4 % (0-2); EOSINOPHILS 2.5 % (0-7); HEMATOCRIT 35.3 % (36.0-48.0); HEMOGLOBIN 11.4 g/dL (12-16); IMMATURE GRANULOCYTES 0.2 % (0-5); LYMPHOCYTES 25.6 % (15-50); MCH 21.5 pg (26.0-34.0); MCHC 32.3 g/dL (31.0-37.0); MCV 66.6 fL (80.0-100.0); MEAN PLATELET VOLUME 10.7 fL (7.4-10.4); MONOCYTES 8.7 % (2-11); NEUTROPHILS 62.6 % (40-80); PLATELET COUNT 338 10x3/uL (130-400); RDW 16.6 % (11.5-14.5); WBC 5.5 10x3/uL (4.8-10.8)
[2018-04-25 18:42] LABS: APTT 31.8 SECONDS (22.8-39.4); INR 1.07 (0.85-1.17); PROTIME 13.5 SECONDS (11.6-15.0)
[2018-04-25 18:43] LABS: D-DIMER-QUANTITATIVE < 0.27 ug/mLFEU (0.20-0.54)
[2018-04-25 18:47] LABS: ALBUMIN 3.7 g/dL (3.4-5.0); ALKALINE PHOSPHATASE 47 U/L (46-116); ALT (SGPT) 19 U/L (10-68); BILIRUBIN - TOTAL 0.28 mg/dL (0.2-1.3); CALC OSMOLALITY 273 mosm/kg (275-300); CALCIUM 8.9 mg/dL (8.5-10.1); CARBON DIOXIDE 28.3 mmol/L (21.0-32.0); CHLORIDE - SERUM 103 mmol/L (98-107); GLUCOSE 92 mg/dL (74-106); POTASSIUM - SERUM 3.4 mmol/L (3.5-5.1); PROTEIN - SERUM 7.8 g/dL (6.4-8.2); SODIUM 138 mmol/L (136-145); UREA NITROGEN 8 mg/dL (7-18); eGFR NON AFRICAN AMERICAN 59 mL/min (90-120)
[2018-04-25 18:57] LABS: CKMB 1.9 U/L (0.0-3.6); LIPASE 187 U/L (73-393); TROPONIN-I < 0.017 ng/mL (0.000-0.060)
[2018-04-25 20:05] VITALS: BP 120/72
== END 2018-04-25 20:06 | disposition home or self-care (01) ==
LOC: D.ER 18:14
PROVIDERS: Family Medicine
DX: K21.9 Gastro-esophageal reflux disease without esophagitis (principal); M25.512 Pain in left shoulder; I10 Essential (primary) hypertension

== ENCOUNTER → 2018-07-03 10:44 | Outpatient (CLI) | payer MEDICARE, MEDICAID ==
[2018-04-25 18:18] VITALS: BMI 30.8
[2018-07-03 11:23] LABS: BASOPHILS 0.7 % (0-2); EOSINOPHILS 4.5 % (0-7); HEMATOCRIT 38.1 % (36.0-48.0); HEMOGLOBIN 12.1 g/dL (12-16); IMMATURE GRANULOCYTES 0.2 % (0-5); LYMPHOCYTES 32.2 % (15-50); MCH 21.3 pg (26.0-34.0); MCHC 31.8 g/dL (31.0-37.0); MEAN PLATELET VOLUME 10.4 fL (7.4-10.4); MONOCYTES 12.5 % (2-11); NEUTROPHILS 49.9 % (40-80); PLATELET COUNT 293 10x3/uL (130-400); RBC 5.69 10x6/uL (4.00-5.40); RDW 16.6 % (11.5-14.5); WBC 4.2 10x3/uL (4.8-10.8)
== END | disposition home or self-care (01) ==
LOC: D.LAB 10:44
PROVIDERS: Internal Medicine Gastroenterology
DX: R19.5 Other fecal abnormalities (principal); K57.90 Diverticulosis of intestine, part unspecified, without perforation or abscess without bleeding; R12 Heartburn

== ENCOUNTER 2018-07-08 09:10 | Outpatient (CLI) | payer MEDICARE, MEDICAID ==
[2018-04-25 18:18] VITALS: BMI 30.8
== END 2018-07-09 13:27 | disposition home or self-care (01) ==
LOC: D.HCCARDIO 09:10
DX: I25.119 Atherosclerotic heart disease of native coronary artery with unspecified angina pectoris (principal)

== ENCOUNTER → 2018-09-01 14:34 | Outpatient (CLI) | payer MEDICARE, MEDICAID ==
[2018-04-25 18:18] VITALS: BMI 30.8
== END | disposition home or self-care (01) ==
LOC: D.CT 14:34
PROVIDERS: ATTEND Family Medicine
DX: R10.31 Right lower quadrant pain (principal)

== ENCOUNTER → 2018-09-09 19:21 | Outpatient (CLI) | payer MEDICARE, MEDICAID ==
[2018-04-25 18:18] VITALS: BMI 30.8
== END | disposition home or self-care (01) ==
LOC: D.LABREF 19:21
PROVIDERS: ATTEND Urology
DX: D72.829 Elevated white blood cell count, unspecified (principal)

== ENCOUNTER → 2018-09-21 09:52 | Outpatient (CLI) | payer MEDICARE, MEDICAID ==
[2018-04-25 18:18] VITALS: BMI 30.8
--- NOTE | 2018-09-25 15:03 | EC ---
PATIENT:SHAYLEE WILLS DATE OF SERVICE: 09/21/18 SEX: F MEDICAL RECORD: [id number] DATE OF : 53 [facility] AGE OF PATIENT: 63 ADMISSION DATE: 09/21/18 REFERRING PHYSICIAN: INTERPRETING PHYSICIAN: IVONNE FERNANDO MD ECHOCARDIOGRAM REPORT ECHO CHARGES 4 ECHO COMPLETE Date: 09/21/18 CLINICAL DIAGNOSIS: PERICARDIAL EFFUSION/MR H/O CAD/HTN ECHOCARDIOGRAPHIC MEASUREMENTS (adult normal given) AC root (d.<3.7cm) 2.9 cm LV Septum d (<1.2 cm> 1.2 cm Valve Excursion 1.8 cm LV Septum (systole) 1.8 cm Left Atria (s.<4.0cm> 4.0 cm LVPW d(<1.2cm) 1.2 cm RV (d.<2.3cm) 2.7 cm LVPW (sytole) 1.8 cm LV diastole(<5.6CM) 5.2 cm MV E-F(>70mm/sec) cm LV systole 3.1 cm LVOT Diameter 1.9 cm MV exc.(>10mm) cm Est.ejection fraction (50-75%) % DOPPLER: LVIT cm/sec A 82.0 cm/sec E 95.0 cm/sec LA cm/sec RVSP 15.0 mmHg LVOT 113 cm/sec AOP1/2T m/s Asc. Ao 144 cm/sec RVOT 45.0 cm/sec RA cm/sec PA 89.0 cm/sec AV Gradient Peak 8.3 mmHg AV Mean 4.4 mmHg AV Area 1.9 cm MV Gradient Peak 3.5 mmHg MV Mean 1.7 mmHg MV Area cm COMMENTS: OP - HC Manager Of Network: 1 HEIDY GRASSTON Edge Finisher: 1 Dr. Fernando TAPE# PACS Pericardial Effusion Y DATE OF SERVICE: 09/21/2018 FINDINGS: 1. Left ventricular chamber size is within normal limits. Left ventricular systolic function is normal. Overall ejection fraction is estimated at 55%. 2. Left atrium is upper limits of normal at 4.0 cm. Right atrium and right ventricle chamber sizes are within normal limit. 3. A small atrial septal defect is noted with a small [id number] shunt. 4. Valvular structures have normal structure and motion. 5. Doppler interrogation reveals no significant valvular insufficiency or ECHOCARDIOGRAM REPORT [id number] CHAMBERS,SHAYLEE ARVIN stenosis. Pulmonary systolic pressure is normal, estimated at 15 mmHg. 6. Small pericardial effusion is present. This is not hemodynamically significant. No evidence of left ventricular thrombus. TRANSINT:[id number] Voice Confirmation ID: [id number] DOCUMENT ID: [id number] IVONNE FERNANDO MD at 1503 CC: [id number] DICTATION DATE: 09/21/18 1618 PATIENT NAVIGATOR: 09/21/181956 DEP CLI 09/21/18 [place] [id number] [place] [address]
== END | disposition home or self-care (01) ==
LOC: D.HCCARDIO 09:52
PROVIDERS: ATTEND Internal Medicine Interventional Cardiology
DX: I25.10 Atherosclerotic heart disease of native coronary artery without angina pectoris (principal)

== ENCOUNTER 2018-10-09 08:23 | Outpatient (CLI) | payer MEDICARE, MEDICAID ==
[~2018-10-09] VITALS: Ht 157.5 cm; Wt 76.4 kg
[2018-10-09 08:45] LABS: APTT 32.2 SECONDS (22.8-39.4); INR 1.07 (0.85-1.17); PROTIME 13.4 SECONDS (11.6-15.0)
[2018-10-09 08:46] LABS: CALCIUM 9.1 mg/dL (8.5-10.1); CREATININE - SERUM 1.1 mg/dL (0.6-1.3)
[2018-10-09 08:47] LABS: HEMATOCRIT 39.7 % (36.0-48.0); HEMOGLOBIN 12.3 g/dL (12-16); LYMPHOCYTES 29.7 % (15-50); MCH 21.2 pg (26.0-34.0); MCV 68.4 fL (80.0-100.0); MEAN PLATELET VOLUME 10.5 fL (7.4-10.4); NEUTROPHILS 59.8 % (40-80); PLATELET COUNT 323 10x3/uL (130-400); RDW 17.3 % (11.5-14.5); WBC 3.4 10x3/uL (4.8-10.8)
[2018-10-09 09:22] VITALS: BP 107/69; Ht 157.5 cm; Wt 76.4 kg
== END 2018-10-09 16:30 | disposition home or self-care (01) ==
LOC: D.SP 08:23 → D.RAD 11:00 → D.SP 11:00
PROVIDERS: ATTEND Specialist
DX: C64.2 Malignant neoplasm of left kidney, except renal pelvis (principal); Z01.812 Encounter for preprocedural laboratory examination

== ENCOUNTER → 2018-10-14 16:00 | Outpatient (CLI) | payer MEDICARE, MEDICAID ==
[2018-10-09 09:22] VITALS: BMI 30.8
== END | disposition home or self-care (01) ==
LOC: D.LABREF 16:00
PROVIDERS: ATTEND Urology
DX: R31.9 Hematuria, unspecified (principal)

== ENCOUNTER 2018-12-18 08:45 | Inpatient (IN) | payer MEDICARE, MEDICAID ==
[~2018-12-18] VITALS: Ht 157.5 cm; Wt 80.7 kg
[2019-01-07] MEDS ORDERED: PROAIR HFA ORAL INH (11:32)
[2019-01-07 12:22] LABS: BASOPHILS 0.3 % (0-2); EOSINOPHILS 3.4 % (0-7); HEMATOCRIT 35.8 % (36.0-48.0); HEMOGLOBIN 11.1 g/dL (12-16); IMMATURE GRANULOCYTES 0.5 % (0-5); LYMPHOCYTES 28.8 % (15-50); MCH 20.9 pg (26.0-34.0); MCV 67.3 fL (80.0-100.0); MONOCYTES 8.7 % (2-11); NEUTROPHILS 58.3 % (40-80); PLATELET COUNT 263 10x3/uL (130-400); RBC 5.32 10x6/uL (4.00-5.40); WBC 3.8 10x3/uL (4.8-10.8)
[2019-01-07 12:28] LABS: ANION GAP 8.9 mmol/L (8-16); CALCIUM 9.5 mg/dL (8.5-10.1); CARBON DIOXIDE 31.8 mmol/L (21.0-32.0); POTASSIUM - SERUM 3.7 mmol/L (3.5-5.1)
[2019-01-07 12:31] LABS: APTT 26.4 SECONDS (22.8-39.4)
[2019-01-07 12:34] LABS: INR 1.03 (0.85-1.17)
[2019-01-08 06:50] VITALS: BP 134/78
--- NOTE | 2019-01-08 09:05 | NUR ---
PATIENT POSITIONED LATERAL RIGHT ALL AREAS PADDED AND SECURED, WITH NO IMPINGEMENTS, DR DOMINGUEZ PRESENT AND ASSISTING WITH POSITION, VINICIO.
[2019-01-08 12:30] VITALS: BP 127/73
--- NOTE | 2019-01-08 12:32 | NUR ---
RECIEVED PT FROM TALI KUNZ RN. PT AROUSED BY VERBAL STIMULI. NO S/S OF ACUTE DISTRESS. CL IN PLACE.
[2019-01-08 14:54] VITALS: BP 127/73; BMI 32.6
--- NOTE | 2019-01-08 15:33 | OP ---
PATIENT NAME: SHAYLEE WILLS MEDICAL RECORD: [id number] :53 LOCATION:D[facility] ADMISSION DATE:01/08/19 SURGEON: JAYME DOMINGUEZ MD DATE OF OPERATION: 01/08/2019 CO-SURGEONS: Jayme Dominguez MD and Jayme Pierce MD ANESTHESIA: General anesthesia by Lul Simental CRNA. 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 PROCEDURE: Laparoscopic hand-assisted left radical nephrectomy. FINDINGS: Abdominal adhesions from previous surgery. SPECIMENS: Left kidney, adrenal and ureter. BLOOD LOSS: Less than 50 mL. 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 It is 2.1 cm in size and it was intraparenchymal. One surface of the cyst is on the renal cortex, capsular surface. The other end of the cyst is lining the renal collecting system. For this reason, interventional radiology said they could not treat this with cryoablation. 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 She had a PET scan, which found no metastatic disease. Metastatic workup was otherwise negative. She comes to have a left radical nephrectomy. Her serum creatinine is normal. SHE IS ALLERGIC TO ASPIRIN, CODEINE, AND SULFA. She was given Ancef environmental health sanitarian to the OR. DESCRIPTION OF PROCEDURE: The patient was given induction of general anesthesia in supine position. She was then turned into the lateral decubitus position with the left side up. This was actually more of 45 degrees up position on a beanbag. A Velazquez catheter was inserted into the bladder and put to bag drainage. She was then prepped and draped. A 7.5-cm incision was made in the anterior abdominal midline just superior to the umbilicus. Through this, we put a GelPort hand access port. We then started CO2 insufflation. Putting the scope in, we put a camera port 12 mm in the subxiphoid area. In the left lower quadrant of the abdomen and the mid axillary line, we put a 12-mm port for working port. The adhesions were taken down using the Harmonic scalpel. We then took down the peritoneum lateral to the descending colon at the line of Toldt. This started from inferiorly and went cranially up to the splenic flexure. The splenic flexure was also taken down under direct vision. We could then mobilize the colon medially away from the anterior surface of the kidney. Once the colon was mobilized medially, we identified the ureter. The ureter was found where it crossed the common iliac vessels. The ureter was traced proximally. We continued to dissect the splenocolic ligament to free the colon from the spleen. Finally, we managed to completely free the colon from the anterior surface of the kidney. The ureter was then ligated multiple times with clips and divided between the clips using Metzenbaum scissors. By dissecting posterior to the kidney, we were able to get to the renal pedicle and identify the renal artery and renal vein. We also identified the gonadal vein and this was clipped multiple times and Metzenbaum scissors was used to divide the vein between clips. We now had access to the renal pedicle. Endo-JASON 45 with OPERATIVE REPORT [id number] SHAYLEE WILLS vascular loads was used to go through the renal pedicle. We continued to use the stapler cranially and head around the adrenal gland with the Endo-JASON. The plane between the spleen and the superior surface of the kidney was also gone through with the Endo-JASON and vascular load. Finally, the kidney was entirely free. The kidney specimen was removed through the Gelport hand access port site. We then placed a Surgicel Nu-Knit sheet on the renal fossa. The bleeding throughout the surgery had been very minimal. The 12-mm access port sites were closed with 0 Vicryl using a Silver-Myles device to place the sutures. The rectus opening was closed using running looped 0 PDS. [place] were used to close the skin incisions. Dressings were applied on the daja. The patient will be transferred to the recovery room and from there to the floor. TRANSINT:[id number] Voice Confirmation ID: [id number] DOCUMENT ID: [id number] JAYME DOMINGUEZ MD at 1533 CC: [id number] DICTATION DATE: 01/08/191115 ROOF CEMENT AND PAINT MAKER: 01/08/19 1144 ADM IN [place] [address] [place] [address]
--- NOTE | 2019-01-08 16:07 | OP ---
PATIENT NAME: SHAYLEE WILLS MEDICAL RECORD: [id number] :53 LOCATION:[facility] [address] ADMISSION DATE:01/08/19 SURGEON: DONNY TEJEDA MD DATE OF OPERATION: 01/08/2019 This is a cosurgeon case. The urologist was Dr. Dominguez. GENERAL SURGEON: Donny Tejeda MD PREOPERATIVE DIAGNOSIS: Left renal cancer. POSTOPERATIVE DIAGNOSIS: Left renal cancer. PROCEDURE: Left radical nephrectomy. ESTIMATED BLOOD LOSS: Please see Dr. Dominguez's note. DESCRIPTION OF PROCEDURE: I scrubbed in as Dr. Dominguez was inserting the GelPort. It was necessary to have 2 attending surgeons present due to the complex state of the procedure. There were some adhesions in the abdomen. I took down some of these adhesions through the use of blunt as well as some dissection with the Harmonic scalpel. I incised along the left white line of Toldt. I took down the lienocolic ligament. I dissected underneath the spleen with the Harmonic scalpel. I mobilized the tail of the pancreas. I also mobilized some of the adrenal gland with the Harmonic scalpel. I identified the left ureter and it was clipped and divided. The gonadal vein was clipped and divided. Dr. Dominguez performed some dissection behind the kidney. We both isolated the hilar vessels. I did some stapling across the hilar vessels as well as created a window behind the adrenal gland. I helped deliver the specimen. I assisted with fascial closure in the midline consisting of running looped 0 PDS. We both closed skin with clips. TRANSINT:[id number] Voice Confirmation ID: [id number] DOCUMENT ID: [id number] DONNY TEJEDA MD at 1607 CC: DONNY DOMINGUEZ MD [id number] DICTATION DATE: 01/08/19 1110 EXTRUDER OPERATOR MULTIPLE: 01/08/19 1213 ADM IN [place] [address] [place] [address]
[2019-01-08 16:51] VITALS: BP 142/83
--- NOTE | 2019-01-08 19:00 | NUR ---
REPORT RECEIVED AND CARE OF PT ASSUMED. PT LYING IN SEMI BURNS'S POSITION VISITING WITH FAMILY MEMBERS. IV TO RIGHT FA PATENT WITH LR INFUSING AT 150 ML/HR. JUNIOR CATHETER DRAINING TO GRAVITY WITH YELLOW URINE IN COLLECTION BAG. DRESSINGS ON ABDOMEN CLEAN AND DRY. WILL MONITOR FOR NEEDS.
--- NOTE | 2019-01-08 19:15 | NUR ---
SCD'S IN PLACE AND TURNED ON BLE.
--- NOTE | 2019-01-08 19:30 | NUR ---
TEACHING PERFORMED ON USE OF PRN BUTTON ON EPIDURAL.
[2019-01-08 20:00] VITALS: BP 134/68
--- NOTE | 2019-01-08 21:00 | NUR ---
TEACHING PERFORMED ON USE OF INCENTIVE INSPIROMETER.
--- NOTE | 2019-01-08 21:50 | NUR ---
HS MEDICATIONS GIVEN. PT DECLINED TO TAKE BACLOFEN. WILL CONTINUE TO MONITOR FOR NEEDS.
--- NOTE | 2019-01-08 22:08 | NUR ---
PT TURNED TO RIGHT SIDE PROPPED WITH PILLOWS PER TURN SCHEDULE.
[2019-01-09] VITALS: BP 107/58
--- NOTE | 2019-01-09 02:30 | NUR ---
EMPTIED 2000 ML OF YELLOW URINE FROM JUNIOR COLLECTION BAG. CHANGED BED PAD IT WAS DAMP FROM ICE PACK....PT THINKS JUNIOR MAY BE LEAKING...WILL CONTINUE TO MONITOR.
--- NOTE | 2019-01-09 02:47 | NUR ---
GAVE MORPHINE 3 MG IVP PER REQUEST FOR PAIN. WILL MONITOR FOR EFFECTIVENESS.
--- NOTE | 2019-01-09 07:15 | NUR ---
REC'D IN BED AWAKE WATCHING TV. NO DISTRESS NOTED. CAN EXPRESS NEEDS AND WANTS. NO C/O NOTED OR VOICED AT THIS TIME. ASSESEMENT COMPLETED. C/L IN REACH AT BEDSIDE.
[2019-01-09 08:16] VITALS: BMI 32.5
[2019-01-09 08:26] VITALS: BP 124/66
--- NOTE | 2019-01-09 08:28 | NUR ---
PT AT FIRST REFUSE TO TAKE NORVAC BUT THEN DECIDED TO TAKE MEDICATION. C/L IN REACH AT BEDSIDE.
--- NOTE | 2019-01-09 09:25 | NUR ---
THIS NURSE WAS CALLED TO NURSING STATION VIA DR. DOMINGUEZ STATING THAT THE PT HAD HIM PAGED STATING THAT SHE IS NOT GETTING HER PAIN MEDICATION. THIS NURSE INFORMED DR. DOMINGUEZ THAT THE PT HADN'T ASK THIS NURSE OR THE MATCHBOOK ASSEMBLER THAT IS WITH THIS NURSE FOR ANY PAIN MEDICATION. THIS NURSE AND DR. DOMINGUEZ ENTER PT ROOM AND DR. DOMINGUEZ INFORMED PT THAT SHE HAS TO ASK FOR PAIN MEDICATION. PT STATED " I HAVE." THIS NURSE THEN ASKED PT WHO HAS SHE ASKED THEN PT. STATED "I HAD MY LIGHT ON AND NO ONE CAME SO I CALLED DR. DOMINGUEZ. AND NO ONE HAD BEEN IN MY ROOM ALL THIS MORNING. " THIS NURSE INFORMED PT THAT I AND THE STUDENT HAD BOTH BEEN IN HER ROOM ON THIS AM TO INTRODUCE OURSELVES AND TO LET YOU KNOW THAT WE WILL BE TAKING CARE OF YOU ON TODAY THAT WAS THE FIRST TIME. THEN THE SECOND TIME WAS WHEN THIS NURSE ADMINSTER HER MORNING MEDS. THEN AGAIN AFTER THE BREAKFAST TRAYS CAME CAUSE PT STATED THAT SHE DOESN'T LIKE ORANGE JELLO AND THAT SHE WANTED RED. THEN THE LAST TIME WAS WHEN SHE WANTED HER PILLOW ADJUSTED BEHIND HER HEAD AND THE EXTRA PILLOW CASE CHANGED. THEN PT WAS LIKE THATS RIGHT FORGIVE ME. THIS NURSE AND DR. DOMINGUEZ THEN EXITED ROOM. C/L IN REACH AT BEDSIDE.
--- NOTE | 2019-01-09 09:27 | NUR ---
WAS MEDICATED WITH OXY PER ORDERS FOR C/O ABD. PAIN . C/L IN REACH AT BEDSIDE.
[2019-01-09 11:38] LABS: BASOPHILS 0 % (0-2); EOSINOPHILS 0 % (0-7); HEMATOCRIT 31.3 % (36.0-48.0); HEMOGLOBIN 9.8 g/dL (12-16); IMMATURE GRANULOCYTES 0.3 % (0-5); LYMPHOCYTES 6.3 % (15-50); MCHC 31.3 g/dL (31.0-37.0); MCV 67.2 fL (80.0-100.0); MEAN PLATELET VOLUME 10.1 fL (7.4-10.4); MONOCYTES 8.1 % (2-11); NEUTROPHILS 85.3 % (40-80); PLATELET COUNT 236 10x3/uL (130-400); RBC 4.66 10x6/uL (4.00-5.40); RDW 17.1 % (11.5-14.5)
[2019-01-09 11:40] LABS: WBC 10.8 10x3/uL (4.8-10.8)
[2019-01-09 11:47] LABS: ANION GAP 9.8 mmol/L (8-16); CALCIUM 7.6 mg/dL (8.5-10.1); CARBON DIOXIDE 28.1 mmol/L (21.0-32.0); POTASSIUM - SERUM 3.9 mmol/L (3.5-5.1)
[2019-01-09 11:53] LABS: CREATININE - SERUM 1.8 mg/dL (0.6-1.3)
[2019-01-09 12:46] VITALS: BP 105/64
--- NOTE | 2019-01-09 15:03 | NUR ---
MEDICATION WITH OXY FOR C/O ABD PAIN. FAMILY AND C/L IN REACH AT BEDSIDE.
--- NOTE | 2019-01-09 16:28 | NUR ---
I have reviewed this patient and I concur with the Shift Assessment completed by the Licensed Practical Nurse today this shift.
[2019-01-09 17:52] VITALS: BP 122/71
--- NOTE | 2019-01-09 19:00 | NUR ---
REPORT RECEIVED AND CARE OF PT ASSUMED. PT LYING IN HIGH BURNS'S POSITION TALKING ON THE PHONE. IV IN RIGHT FA PATENT WITH NS INFUSING AT125 ML/HR. JUNIOR CAHTETER DRAINING TO GRAVITY WITH YELLOW URINE IN COLLECTION BAG. WILL MONITOR FOR NEEDS.
[2019-01-09 20:00] VITALS: BP 117/66
--- NOTE | 2019-01-09 20:51 | NUR ---
HS MEDICATIONS GIVEN TO INCLUDE PERCOCET PER REQUEST FOR PAIN. WILL MONITOR FOR EFFECTIVESS.
[2019-01-10] VITALS: BP 137/78
--- NOTE | 2019-01-10 07:30 | NUR ---
AAOX4. ON 2 L O2. IV TO RIGHT FOREARM, NS AT 125ML/HR. IV SITE PATENT, NO REDNESS OR SWELLING, SCD'S PRESENT, DRESSING TO MIDLINE WITH TWO LAP SITES ON LEFT SIDE, DENIES ANY CURRENT NEEDS OR DISCOMFORTS, BED LOWERED AND LOCKED, CALL LIGHT WITHIN REACH. CPOC
[2019-01-10 09:10] VITALS: BP 115/75
[2019-01-10 12:12] VITALS: BP 144/72
[2019-01-10 16:31] VITALS: BP 145/86
--- NOTE | 2019-01-10 18:34 | NUR ---
JUNIOR CATHETER REMOVED PER ORDER. CATHETER TIP INTACT, PERINEAL AREA CLEAN AND DRY. DENIES ANY DISCOMFORTS, BED LOWERED AND LOCKED, CALL LIGHT WITHIN REACH. CPOC. HAT PLACED IN TOILET FOR ACCURATE URINE OUTPUT.
--- NOTE | 2019-01-10 19:00 | NUR ---
REPORT RECEIVED AND CARE OF PT ASSUMED. PT LYING IN MID BURNS'S POSITION TALKING ON THE PHONE. IV IN RIGHT FA SALINE LOCKED. WILL MONITOR FOR NEEDS.
--- NOTE | 2019-01-10 20:05 | NUR ---
DRUG ABUSE TREATMENT SPECIALIST ASSISTED PT UP TO VOID IN RESTROOM.
[2019-01-10 20:44] VITALS: BP 137/75
--- NOTE | 2019-01-10 21:50 | NUR ---
HS MEDICATIONS GIVEN TO INCLUDE PERCOCET PER PRN ORDER.
--- NOTE | 2019-01-10 22:05 | NUR ---
PT'S FAMILY MEMBER ASSISTED PT UP TO VOID.
[2019-01-11 05:42] VITALS: BP 137/81
[2019-01-11 08:43] VITALS: BP 147/84
[2019-01-11 13:10] VITALS: BP 115/73
[2019-01-11 15:39] LABS: BASOPHILS 0.1 % (0-2); EOSINOPHILS 1.7 % (0-7); HEMOGLOBIN 10.7 g/dL (12-16); IMMATURE GRANULOCYTES 0.3 % (0-5); LYMPHOCYTES 9.6 % (15-50); MCH 21.3 pg (26.0-34.0); MCHC 32.4 g/dL (31.0-37.0); MCV 65.7 fL (80.0-100.0); MEAN PLATELET VOLUME 10.1 fL (7.4-10.4); MONOCYTES 8.6 % (2-11); NEUTROPHILS 79.7 % (40-80); PLATELET COUNT 245 10x3/uL (130-400); RBC 5.02 10x6/uL (4.00-5.40); RDW 16.9 % (11.5-14.5); WBC 8.9 10x3/uL (4.8-10.8)
[2019-01-11 16:02] LABS: ANION GAP 10.7 mmol/L (8-16); CALCIUM 8.3 mg/dL (8.5-10.1); CARBON DIOXIDE 28.9 mmol/L (21.0-32.0); CREATININE - SERUM 1.6 mg/dL (0.6-1.3); POTASSIUM - SERUM 3.6 mmol/L (3.5-5.1)
[2019-01-11 17:15] VITALS: BP 131/81
--- NOTE | 2019-01-11 20:12 | NUR ---
REC'D CHGE OF SHIFT ASSISTED TO BATHRM.WITH MINIMAL ASSIST MARISOL WELL.REQUEST FOR SCD'S TO STAY OFF FOR AWHILE. SITTING UP BEDSIDE CHAIR WILL CONTINUE TO MONITOR FOR ANY CHGES AND FOLLOW CURRENT PLAN OF CARE.
[2019-01-11 21:57] VITALS: BP 132/72
--- NOTE | 2019-01-12 03:59 | NUR ---
I have reviewed this patient and I concur with the Shift Assessment completed by the Licensed Practical Nurse today this shift.
[2019-01-12 04:45] VITALS: BP 120/62
[2019-01-12 09:08] VITALS: BP 118/62
--- NOTE | 2019-01-12 10:20 | NUR ---
PT RESTING QUIETLY AT THIS TIME. ASSESSED EARILER AND HAD RECIEVED PAIN MEDICATION PER REQUEST. SARAH NOTED CLEAN AND DRY WITH NO REDDNESS TO INCISION TO MID ABDOMEN AND LEFT UPPER ABDOMEN INCISION. CALL LIGHT IN REACH
[2019-01-12 10:45] LABS: APPEARANCE CLEAR (CLEAR); BILIRUBIN NEGATIVE (NEGATIVE); COLOR YELLOW (YELLOW); GLUCOSE NEGATIVE (NEGATIVE); KETONE NEGATIVE (NEGATIVE); NITRITE NEGATIVE (NEGATIVE); PROTEIN 1+ mg/dL (NEGATIVE); UROBILINOGEN NORMAL (NORMAL)
[2019-01-12 10:46] LABS: BACTERIA FEW /hpf (NONE SEEN); EPITHELIAL CELLS OCC /hpf (0-5); WHITE CELLS - URINE 0-5 /hpf (0-5)
[2019-01-12 10:47] LABS: RED CELLS - URINE RARE /hpf (0-5)
--- NOTE | 2019-01-12 12:52 | MORECARE ---
CASE MANAGEMENT DISCHARGE SUMMARY PATIENT: SHAYLEE WILLS UNIT: [id number] ADM DATE: 01/08/19 AGE: 63 : 53 SEX: F ROOM/BED: D.2201 AUTHOR: WICHO STRATTON PHYSICIAN: REFERRING PHYSICIAN: JAYME DOMINGUEZ MD DATE OF SERVICE: 01/12/19 Discharge Plan Patient Name: SHAYLEE WILLS Facility: [facility]:[place] : 1955 Planned Disposition: Home Anticipated Discharge Date: Discharge Date: Expected LOS: Initial Reviewer: [email or web address] Initial Review Date: 01/08/2019 Generated: 01/12/19 1:52 pm Comments DCP- Discharge Planning Updated by [email or web address]: Keiko Remy on 01/12/19 11:[address] Patient Name: SHAYLEE WILLS Admission Status: Elective Accout number: [id number] Admission Date: 01-08-2019 : 1955 Admission Diagnosis: Attending: SADA DOMINGUEZ Current LOS: 4 Anticipated DC Date: Planned Disposition: Home Primary Insurance: [facility] MEDICARE SOLUTIONS Discharge Planning Comments: CM met with patient to complete initial dc planning assessment. CM educated patient on the CM role and verbal consent given by patient to complete assessment. Patient lives at home where she is independent with her care, her adult son lives with her. At discharge patient plans to return home and feels this is a safe discharge. CM discussed availability of home health, rehab services, and medical equipment. She has an elevated toilet, shower chair and walker at home that she ordered. Her son or her grandson will be her tanker driver home. Patient denied known discharge needs at this time. CM will continue to follow and will assist as needed with dc plans/needs. Bone Puller: Keiko Remy DCPIA - Discharge Planning Initial Assessment Updated by [email or web address]: Keiko Remy on 01/12/19 12:43 pm * Is the patient Alert and Oriented? Yes * How many steps to enter\exit or inside your home? * PCP JOSELINE * Pharmacy [facility] [address] * Preadmission Environment Home with Family * ADLs Independent * Equipment Elevated [place] Seat Rolling Walker Shower Chair * List name and contact numbers for known caregivers / representatives who currently or will assist patient after discharge: DEYANIRA SHORT * Verbal permission to speak to the caregivers and representatives has been obtained from the patient. N/A * Community resources currently utilized None * Additional services required to return to the preadmission environment? No * Can the patient safely return to the preadmission environment? Yes * Has this patient been hospitalized within the prior 30 days at any hospital? No Patient Name: SHAYLEE WILLS Page [phone] at 1252 All edits/amendments must be made on the electronic document DICTATION DATE: 01/12/19 1251 FIRE MANAGEMENT OFFICER: ABY 01/12/19 1251 RPT#: [id number] DC DATE: STATUS: ADM IN [facility] [address] [place] [address] END OF REPORT
[2019-01-12 13:28] VITALS: BP 131/73
[2019-01-12 17:04] VITALS: BP 137/83
[2019-01-12 21:56] VITALS: BP 149/84
[2019-01-13 01:32] VITALS: BP 130/77
--- NOTE | 2019-01-13 03:12 | NUR ---
I have reviewed this patient and I concur with the Shift Assessment completed by the Licensed Practical Nurse today this shift.
--- NOTE | 2019-01-13 04:23 | NUR ---
REC'D IN BED EYES CLOSED RESP. DEEP AND EVEN.OPENS EYES WHEN NAME CALLED EASILY.BUT DRIFTS BACK TO SLEEP.WILL CONTINUE TO MONITOR FOR ANY CHGES AND FOLLOW CURRENT PLAN OF CARE
[2019-01-13 05:23] VITALS: BP 134/80
[2019-01-13 08:44] VITALS: BP 126/76
[2019-01-13 13:31] VITALS: BP 121/70
--- NOTE | 2019-01-13 16:42 | NUR ---
PT RECIEVED WARM PRUNE JUICE TO TRY TO HELP WITH BM
[2019-01-13 17:21] VITALS: BP 120/63
--- NOTE | 2019-01-13 18:33 | NUR ---
PT IV INFUSING DOXY AT THE END PT IV STARTED TO LEAK. TRIED TO RESITE PT AND PT STATED SHE IS TIRED AND WANTS TO DO IT LATER. WILL RELAY TO ONCOMING NURSE
--- NOTE | 2019-01-13 19:25 | NUR ---
ASSISTED TO BR TO VOID. ALERT AND ORIENTED X4. GAIT SLIGHTLY UNSTEADY. GEN WEAKNESS NOTED. SALINE LOCK NOTED TO RT FOREARM. MIDLINE INCISION NOTED WTIH SARAH X13. SARAH X3 NOT3ED TO LUQ AND SARAH X4 NOT3ED TO LLQ. REPORTS CONSTIPATION. DENIES PAIN. CL IN REACH.
[2019-01-13 21:25] VITALS: BP 143/75
--- NOTE | 2019-01-13 21:30 | NUR ---
IV NOT FLUSHING IN RT FOREARM. IV CATH REMOVED. RESITED X1 ATTEMPT TO RT FOREARM WITH 20G. PT MARISOL WELL.
--- NOTE | 2019-01-13 21:50 | NUR ---
MEDICATED WITH PERCOCET FOR C/O BACK PAIN. CL IN REACH.
--- NOTE | 2019-01-14 01:45 | NUR ---
RESTING QUIETLY WITH EYES CLOSED. RESP EVEN AND NONLABORED. NO DISTRESS. CL IN REACH.
[2019-01-14 02:22] VITALS: BP 145/86
[2019-01-14 05:55] VITALS: BP 130/90
--- NOTE | 2019-01-14 07:37 | NUR ---
PT AMBULATING BACK FROM BATHROOM. NO ASSISTANCE NEEDED. STATES STILL NO BM. OFFERED PRUNE JUICE AGAIN BUT WANTS CRANBERRY JUICE-RECIEVED. INCISION WITH SARAH CLEAN DRY AND INTACT. NO NEEDS AT THIS TIME. CALL LIGHT IN REACH
[2019-01-14 09:41] VITALS: BP 137/80
[2019-01-14 13:51] VITALS: BP 126/80
[2019-01-14 17:46] VITALS: BP 113/71
--- NOTE | 2019-01-14 19:15 | NUR ---
SITTING UP IN BED EATING SNACK. ALERT AND ORIENTED X4. C/O PAIN IN LT ABD AND BACK 8 ON PAIN SCALE BUT REFUSES PERCOCET AT THIS TIME. ABD IS DISTENDED AND BS ARE HYPOACTIVE X4. SALINE LOCK NOTED TO RT FOREARM. SARAH TO ABD INCISIONS ARE INTACT. SR ELEVATED X2. CL IN REACH.
[2019-01-14 21:13] VITALS: BP 142/85
[2019-01-15 00:29] VITALS: BP 144/80
--- NOTE | 2019-01-15 04:59 | NUR ---
HAS RESTED WELL TONIGHT. LYING IN BED WITH EYES CLOSED. RESP EVEN AND NONLABORED. CL IN REACH.
[2019-01-15 05:28] VITALS: BP 124/70
--- NOTE | 2019-01-15 07:15 | NUR ---
REC'D IN BED AWAKE AND ALERT. RESP EVEN AND UNLABORED WITH NO DISTRESS NOTED.C AND EXPRESS NEEDS AND WANTS. NO C/O NOTED OR VOICED. ASSESSMENT COMPLETED. C/L IN REACH AT BEDSIDE.
[2019-01-15 08:41] LABS: BASOPHILS 0.1 % (0-2); EOSINOPHILS 2.3 % (0-7); HEMOGLOBIN 10.5 g/dL (12-16); IMMATURE GRANULOCYTES 1.3 % (0-5); LYMPHOCYTES 15.9 % (15-50); MCHC 32.8 g/dL (31.0-37.0); MCV 64.1 fL (80.0-100.0); MEAN PLATELET VOLUME 10.3 fL (7.4-10.4); MONOCYTES 11.5 % (2-11); NEUTROPHILS 68.9 % (40-80); RBC 4.99 10x6/uL (4.00-5.40); RDW 15.9 % (11.5-14.5)
[2019-01-15 08:46] LABS: PLATELET COUNT 397 10x3/uL (130-400)
--- NOTE | 2019-01-15 10:30 | NUR ---
PT PULLED OUT IV AND REFUSED TO BE RESITED. STATING 'I THINK THAT I MAY BE GOING HOME ON TODAY."
[2019-01-15 10:43] VITALS: BP 137/90
[2019-01-15] MEDS ORDERED: PERCOCET 5-3251 TAB PO (12:12)
[2019-01-15] MEDS ORDERED: ALBUTEROL SULF8.5 GM INH (12:16)
[2019-01-15] MEDS ORDERED: MUCINEX DM ER1 EAC1 PO (12:18)
[2019-01-15] MEDS ORDERED: OMNICEF300 MG PO (12:20)
[2019-01-15] MEDS ORDERED: LEVOFLOXACIN500 MG PO (12:21)
--- NOTE | 2019-01-15 13:12 | MORECARE ---
CASE MANAGEMENT DISCHARGE SUMMARY PATIENT: SHAYLEE WILLS UNIT: [id number] ADM DATE: 01/08/19 AGE: 63 : 53 SEX: F ROOM/BED: D.2201 AUTHOR: WICHO STRATTON PHYSICIAN: REFERRING PHYSICIAN: JAYME DOMINGUEZ MD DATE OF SERVICE: 01/15/19 Discharge Plan Patient Name: SHAYLEE WILLS Facility: [facility]:[place] : 1955 Planned Disposition: Home Anticipated Discharge Date: Discharge Date: Expected LOS: Initial Reviewer: [email or web address] Initial Review Date: 01/08/2019 Generated: 01/15/19 2:11 pm Comments DCP- Discharge Planning Updated by [email or web address]: Keiko Remy on 01/15/19 12:[address] Patient Name: SHAYLEE WILLS Encounter No: [id number] : 1955 Primary Insurance: [facility] MEDICARE SOLUTIONS Anticipated DC Date: Planned Disposition: Home External Planned Provider: : DCP follow-up note: Patient and family in agreement with discharge plan. IMM served and explained. Patient denies any needs at this time. No changes to plan. Case management will follow and assist as needed. Keiko Remy DCP- Discharge Planning Updated by [email or web address]: Keiko Remy on 01/12/19 11:[address] Patient Name: SHAYLEE WILLS Admission Status: Elective Accout number: [id number] Admission Date: 01-08-2019 : 1955 Admission Diagnosis: Attending: SADA DOMINGUEZ Current LOS: 4 Anticipated DC Date: Planned Disposition: Home Primary Insurance: [facility] MEDICARE SOLUTIONS Discharge Planning Comments: CM met with patient to complete initial dc planning assessment. CM educated patient on the CM role and verbal consent given by patient to complete assessment. Patient lives at home where she is independent with her care, her adult son lives with her. At discharge patient plans to return home and feels this is a safe discharge. CM discussed availability of home health, rehab services, and medical equipment. She has an elevated toilet, shower chair and walker at home that she ordered. Her son or her grandson will be her uke driver home. Patient denied known discharge needs at this time. CM will continue to follow and will assist as needed with dc plans/needs. Sales Service Executive: Keiko Remy DCPIA - Discharge Planning Initial Assessment Updated by [email or web address]: Keiko Remy on 01/12/19 12:43 pm * Is the patient Alert and Oriented? Yes * How many steps to enter\exit or inside your home? * PCP JOSELINE * Pharmacy [facility] [address] * Preadmission Environment Home with Family * ADLs Independent * Equipment Elevated [place] Seat Rolling Walker Shower Chair * List name and contact numbers for known caregivers / representatives who currently or will assist patient after discharge: DEYANIRA SHORT * Verbal permission to speak to the caregivers and representatives has been obtained from the patient. N/A * Community resources currently utilized None * Additional services required to return to the preadmission environment? No * Can the patient safely return to the preadmission environment? Yes * Has this patient been hospitalized within the prior 30 days at any hospital? No Coverage Notice Reviewer: [id number] - Keiko Remy Notice Issued Date-Time: 01/15/2019 13:00 Notice Type: IM Discharge Notice Notice Delivered To: Patient Relationship to Patient: Application Software Developer Name: Delivery Method: HAND - Hand Delivered [place] Days: Prior Verbal Notification: Recipient Understood Notice: Yes Recipient Signature: Yes Med Rec Note Co-signed by Attending: Coverage Notice Comment: Last DP export: 01/12/19 11:52 a Patient Name: SHAYLEE WILLS Page 28913 at 1312 All edits/amendments must be made on the electronic document DICTATION DATE: 01/15/19 1311 TENTER FRAME OPERATOR: ABY 01/15/19 1311 RPT#: [id number] DC DATE: STATUS: ADM IN [facility] [address] [place] [address] END OF REPORT
[2019-01-15 13:33] VITALS: Ht 157.5 cm; Wt 80.7 kg
[2019-01-15 14:27] VITALS: BP 137/79
--- NOTE | 2019-01-18 08:56 | MORECARE ---
CASE MANAGEMENT DISCHARGE SUMMARY PATIENT: SHAYLEE WILLS UNIT: [id number] ADM DATE: 01/08/19 AGE: 63 : 53 SEX: F ROOM/BED: D.2201 AUTHOR: WICHO STRATTON PHYSICIAN: REFERRING PHYSICIAN: JAYME DOMINGUEZ MD DATE OF SERVICE: 01/18/19 Discharge Plan Patient Name: SHAYLEE WILLS Facility: [facility]:[place] : 1955 Planned Disposition: Home Anticipated Discharge Date: Discharge Date: 01/15/2019 Expected LOS: 0 Initial Reviewer: [email or web address] Initial Review Date: 01/08/2019 Generated: 01/18/19 9:55 am Comments DCP- Discharge Planning Updated by [email or web address]: Keiko Remy on 01/15/19 12:[address] Patient Name: SHAYLEE WILLS Encounter No: [id number] : 1955 Primary Insurance: [facility] MEDICARE SOLUTIONS Anticipated DC Date: Planned Disposition: Home External Planned Provider: : DCP follow-up note: Patient and family in agreement with discharge plan. IMM served and explained. Patient denies any needs at this time. No changes to plan. Case management will follow and assist as needed. Keiko Remy DCP- Discharge Planning Updated by [email or web address]: Keiko Remy on 01/12/19 11:[address] Patient Name: SHAYLEE WILLS Admission Status: Elective Accout number: [id number] Admission Date: 01-08-2019 : 1955 Admission Diagnosis: Attending: SADA DOMINGUEZ Current LOS: 4 Anticipated DC Date: Planned Disposition: Home Primary Insurance: [facility] MEDIC[employer] SOLUTIONS Discharge Planning Comments: CM met with patient to complete initial dc planning assessment. CM educated patient on the CM role and verbal consent given by patient to complete assessment. Patient lives at home where she is independent with her care, her adult son lives with her. At discharge patient plans to return home and feels this is a safe discharge. CM discussed availability of home health, rehab services, and medical equipment. She has an elevated toilet, shower chair and walker at home that she ordered. Her son or her grandson will be her catering driver home. Patient denied known discharge needs at this time. CM will continue to follow and will assist as needed with dc plans/needs. Rn Intake: Keiko Remy DCPIA - Discharge Planning Initial Assessment Updated by [email or web address]: Keiko Remy on 01/12/19 12:43 pm * Is the patient Alert and Oriented? Yes * How many steps to enter\exit or inside your home? * PCP QUEENIEO * Pharmacy [facility] [address] * Preadmission Environment Home with Family * ADLs Independent * Equipment Elevated [place] Seat Rolling Walker Shower Chair * List name and contact numbers for known caregivers / representatives who currently or will assist patient after discharge: DEYANIRA SHORT * Verbal permission to speak to the caregivers and representatives has been obtained from the patient. N/A * Community resources currently utilized None * Additional services required to return to the preadmission environment? No * Can the patient safely return to the preadmission environment? Yes * Has this patient been hospitalized within the prior 30 days at any hospital? No Coverage Notice Reviewer: [id number] - Keiko Remy Notice Issued Date-Time: 01/15/2019 13:00 Notice Type: IM Discharge Notice Notice Delivered To: Patient Relationship to Patient: Cell Preparer Name: Delivery Method: HAND - Hand Delivered [place] Days: Prior Verbal Notification: Recipient Understood Notice: Yes Recipient Signature: Yes Med Rec Note Co-signed by Attending: Coverage Notice Comment: Last DP export: 01/15/19 12:12 p Patient Name: SHAYLEE WILLS Page 30137 at 0856 All edits/amendments must be made on the electronic document DICTATION DATE: 01/18/19854 IRONING PLEATER: ABY 01/18/1956 RPT#: [id number] DC DATE:01/15/19 STATUS: DIS IN [facility] [address] [place] [address] END OF REPORT
== END 2019-01-15 16:34 | disposition home or self-care (01) | DRG 656 ==
LOC: D.SDCHOLD 01-08 05:27 → D.MS 01-08 05:27 → D.SDCHOLD 01-08 07:30 → D.MS 01-08 12:29
PROVIDERS: Anesthesiology; Surgery; ADMIT Urology; ATTEND Urology
PROC: 0TT10ZZ Resection of Left Kidney, Open Approach (ICD-10-PCS; principal; 2019-01-08 07:30)
DX: C64.2 Malignant neoplasm of left kidney, except renal pelvis (principal); J18.9 Pneumonia, unspecified organism; J98.11 Atelectasis; D86.0 Sarcoidosis of lung; I10 Essential (primary) hypertension; I25.10 Atherosclerotic heart disease of native coronary artery without angina pectoris; J45.909 Unspecified asthma, uncomplicated; K21.9 Gastro-esophageal reflux disease without esophagitis

== ENCOUNTER → 2019-01-06 09:29 | Outpatient (CLI) | payer MEDICARE, MEDICAID ==
[2018-10-09 09:22] VITALS: BMI 30.8
[~2019-01-06 09:29] MED LIST changes: +PROAIR HFA ORAL INH
== END | disposition home or self-care (01) ==
LOC: D.LAB 11-30 08:15 → D.RT 11-30 10:00
PROVIDERS: ATTEND Internal Medicine Pulmonary Disease
DX: D86.2 Sarcoidosis of lung with sarcoidosis of lymph nodes (principal)

== ENCOUNTER 2019-01-20 18:00 | Emergency (ER) | payer MEDICARE, MEDICAID ==
[~2019-01-20] VITALS: Ht 157.5 cm; Wt 74.5 kg
[~2019-01-20 18:00] MED LIST changes: +ALBUTEROL SULF8.5 GM INH; +LEVOFLOXACIN500 MG PO; +MUCINEX DM ER1 EAC1 PO; +OMNICEF300 MG PO; +PERCOCET 5-3251 TAB PO
[2019-01-20 18:07] VITALS: Ht 157.5 cm; Wt 74.5 kg
[2019-01-20 18:55] LABS: BASOPHILS 0.3 % (0-2); EOSINOPHILS 2.5 % (0-7); HEMATOCRIT 32.1 % (36.0-48.0); HEMOGLOBIN 10.3 g/dL (12-16); IMMATURE GRANULOCYTES 1.1 % (0-5); LYMPHOCYTES 20.4 % (15-50); MCH 20.7 pg (26.0-34.0); MCHC 32.1 g/dL (31.0-37.0); MCV 64.5 fL (80.0-100.0); MEAN PLATELET VOLUME 9.4 fL (7.4-10.4); MONOCYTES 6.9 % (2-11); NEUTROPHILS 68.8 % (40-80); PLATELET COUNT 474 10x3/uL (130-400); RBC 4.98 10x6/uL (4.00-5.40); WBC 7.3 10x3/uL (4.8-10.8)
[2019-01-20 19:10] LABS: ALBUMIN 3.1 g/dL (3.4-5.0); ALKALINE PHOSPHATASE 74 U/L (46-116); ALT (SGPT) 25 U/L (10-68); BILIRUBIN - TOTAL 0.24 mg/dL (0.2-1.3); CALC OSMOLALITY 270 mosm/kg (275-300); CALCIUM 8.6 mg/dL (8.5-10.1); CHLORIDE - SERUM 100 mmol/L (98-107); CREATININE - SERUM 1.4 mg/dL (0.6-1.3); GLUCOSE 91 mg/dL (74-106); POTASSIUM - SERUM 3.3 mmol/L (3.5-5.1); PROTEIN - SERUM 7.5 g/dL (6.4-8.2); SODIUM 136 mmol/L (136-145); UREA NITROGEN 10 mg/dL (7-18); eGFR NON AFRICAN AMERICAN 40 mL/min (90-120)
[2019-01-20 19:14] LABS: APTT 31.4 SECONDS (22.8-39.4); INR 1.11 (0.85-1.17); PROTIME 13.8 SECONDS (11.6-15.0)
[2019-01-20 19:21] LABS: LIPASE 483 U/L (73-393); PRO BNP 29 pg/mL (0-125); THYROID STIMULATING HORMONE 1.84 uIU/mL (0.36-3.74)
[2019-01-20 19:22] LABS: TROPONIN-I < 0.017 ng/mL (0.000-0.060)
[2019-01-20] MEDS ORDERED: CHRONULAC30 ML PO (20:34)
[2019-01-20 21:00] VITALS: BP 132/75
== END 2019-01-20 21:00 | disposition home or self-care (01) ==
LOC: D.ER 18:00
PROVIDERS: Family Medicine
DX: Z90.5 Acquired absence of kidney (principal); R14.0 Abdominal distension (gaseous); C64.9 Malignant neoplasm of unspecified kidney, except renal pelvis

== ENCOUNTER → 2019-01-29 18:15 | Outpatient (CLI) | payer MEDICARE, MEDICAID ==
[~2019-01-29 18:15] MED LIST changes: +CHRONULAC30 ML PO
== END | disposition home or self-care (01) ==
LOC: D.LABREF 18:15
PROVIDERS: ATTEND Urology
DX: N39.0 Urinary tract infection, site not specified (principal)

== ENCOUNTER → 2019-02-03 13:38 | Outpatient (CLI) | payer MEDICARE, MEDICAID | END | disposition home or self-care (01) | LOC: D.US 13:38 | PROVIDERS: ATTEND Urology | DX: R22.42 Localized swelling, mass and lump, left lower limb (principal) ==

== ENCOUNTER → 2019-02-24 20:54 | Outpatient (CLI) | payer MEDICARE, MEDICAID | END | disposition home or self-care (01) | LOC: D.LABREF 20:54 | PROVIDERS: ATTEND Urology | DX: D72.829 Elevated white blood cell count, unspecified (principal) ==

== ENCOUNTER → 2019-03-03 13:03 | Outpatient (CLI) | payer MEDICARE, MEDICAID | END | disposition home or self-care (01) | LOC: D.RAD 13:03 | PROVIDERS: ATTEND Internal Medicine Pulmonary Disease | DX: J90 Pleural effusion, not elsewhere classified (principal) ==

== ENCOUNTER 2019-03-05 08:00 | Outpatient (CLI) | payer MEDICARE, MEDICAID ==
[2019-03-05 16:18] LABS: ANION GAP 12.9 mmol/L (8-16); CALCIUM 8.8 mg/dL (8.5-10.1); CARBON DIOXIDE 29.8 mmol/L (21.0-32.0); CREATININE - SERUM 1.6 mg/dL (0.6-1.3); POTASSIUM - SERUM 3.7 mmol/L (3.5-5.1)
[2019-03-05 16:21] LABS: BASOPHILS 0.4 % (0-2); EOSINOPHILS 3.8 % (0-7); HEMOGLOBIN 11.1 g/dL (12-16); IMMATURE GRANULOCYTES 0.2 % (0-5); LYMPHOCYTES 25.8 % (15-50); MCH 21.1 pg (26.0-34.0); MCHC 32.6 g/dL (31.0-37.0); MCV 64.6 fL (80.0-100.0); MEAN PLATELET VOLUME 10.3 fL (7.4-10.4); NEUTROPHILS 60.8 % (40-80); RBC 5.26 10x6/uL (4.00-5.40); WBC 4.8 10x3/uL (4.8-10.8)
[2019-03-05 16:22] LABS: PLATELET COUNT 344 10x3/uL (130-400)
[2019-05-18 19:29] VITALS: BMI 29.9
== END 2019-03-05 08:01 | disposition home or self-care (01) ==
LOC: D.LAB
PROVIDERS: ATTEND Urology
DX: C64.9 Malignant neoplasm of unspecified kidney, except renal pelvis (principal)

== ENCOUNTER → 2019-04-20 10:12 | Outpatient (CLI) | payer MEDICARE, MEDICAID ==
[~2019-04-20 10:12] MED LIST changes: +HYDROCODON-ACE1 EA10 PO; +ISOSORBIDE MONO30 M1 PO; +LASIX20 MG PO; +TALWIN NX1 TAB PO; +VIBRAMYCIN 100100 MG PO
--- NOTE | 2019-04-27 11:41 | ST ---
PATIENT:SHAYLEE WILLS MEDICAL RECORD: [id number] SEX: F LOCATION:[facility] ORDER #: ADMISSION DATE: 04/20/19 AGE OF PATIENT: 63 REFERRING PHYSICIAN: INTERPRETING PHYSICIAN: IVONNE CHAN MD DATE OF SERVICE: 04/20/2019 PROCEDURE: Nuclear stress test. INDICATION: Angina, coronary artery disease, shortness of breath, and hypertension. She was exercised on standard Lexiscan protocol with 33 mCi of sestamibi injected at peak stress, 11 mCi were used previously for rest images. FINDINGS: Gated SPECT reveals a preserved ejection fraction at 72% with good wall motioning and thickening and brightening throughout all segments. SPECT imaging Cardiolite was used as myocardial perfusion agent. There is reversible ischemia present anteriorly and apically. This includes the basal, mid, apical anterior segments as well as the apex itself. The degree of reversibility is moderate. The amount of myocardial involved is moderate. OVERALL IMPRESSION: This is an intermediate risk abnormal nuclear stress test. Reversible ischemia anteriorly as well as apically with preserved ejection fraction suggestive of hemodynamically significant coronary artery disease. TRANSINT:[id number] Voice Confirmation ID: [id number] DOCUMENT ID: [id number] IVONNE CHAN MD at 1141 CC: [id number] DICTATION DATE: 04/21/19 1212 GUZZLER BUILDER: 04/22/19 0050 DEP CLI 04/20/19 [id number] [place] [address]
--- NOTE | 2019-04-27 11:41 | EC ---
PATIENT:SHAYLEE WILLS DATE OF SERVICE: 04/20/19 SEX: F MEDICAL RECORD: [id number] DATE OF : [birth year] [facility] AGE OF PATIENT: 63 ADMISSION DATE: 04/20/19 REFERRING PHYSICIAN: INTERPRETING PHYSICIAN: IVONNE FERNANDO MD ECHOCARDIOGRAM REPORT ECHO CHARGES 4 ECHO COMPLETE Date: 04/20/19 CLINICAL DIAGNOSIS: CAD/DYSPNEA/HTN ECHOCARDIOGRAPHIC MEASUREMENTS (adult normal given) AC root (d.<3.7cm) 3.1 cm LV Septum d (<1.2 cm> 1.4 cm Valve Excursion 1.2 cm LV Septum (systole) 1.6 cm Left Atria (s.<4.0cm> 3.8 cm LVPW d(<1.2cm) 1.3 cm RV (d.<2.3cm) 3.2 cm LVPW (sytole) 1.8 cm LV diastole(<5.6CM) 4.7 cm MV E-F(>70mm/sec) cm LV systole 2.9 cm LVOT Diameter 1.7 cm MV exc.(>10mm) 2.1 cm Est.ejection fraction (50-75%) % DOPPLER: LVIT cm/sec A 65.0 cm/sec E 80.0 cm/sec LA cm/sec RVSP 26 mmHg LVOT 106 cm/sec AOP1/2T m/s Asc. Ao 116 cm/sec RVOT 56 cm/sec RA cm/sec PA 88 cm/sec AV Gradient Peak 5.43 mmHg AV Mean 2.97 mmHg AV Area 2.2 cm MV Gradient Peak 4.49 mmHg MV Mean 1.69 mmHg MV Area cm COMMENTS: Marketing Administrator: 2 VESNA [place] Ice Scraper: 1 Dr. Fernando TAPE# PACS Pericardial Effusion Y DATE OF SERVICE: PROCEDURE: Echocardiogram. FINDINGS: 1. Left ventricular chamber size is within normal limits. Left ventricular systolic function is normal. Overall ejection fraction 60% to 65%. 2. Left atrium, right atrium, and right ventricular chamber sizes are within normal limits. 3. Valvular structures have normal structure and motion. ECHOCARDIOGRAM REPORT [id number] SHAYLEE WILLS 4. Doppler interrogation reveals trace mitral regurgitation, trace tricuspid regurgitation, no other valvular insufficiency or stenosis. Pulmonary systolic pressure is normal estimated at 26 mmHg. 5. No evidence of pericardial effusion or left ventricular thrombus. TRANSINT:[id number] Voice Confirmation ID: [id number] DOCUMENT ID: [id number] IVONNE FERNANDO MD at 1141 CC: [id number] DICTATION DATE: 04/21/19 1158 PAIN MANAGEMENT SPECIALIST: 04/21/19 1204 DEP CLI 04/20/19 [id number] [place] [address]
== END | disposition home or self-care (01) ==
LOC: D.HCCECHO 10:12
PROVIDERS: ATTEND Internal Medicine Interventional Cardiology
DX: I25.10 Atherosclerotic heart disease of native coronary artery without angina pectoris (principal)

== ENCOUNTER 2019-04-27 09:48 | Outpatient (CLI) | payer MEDICARE, MEDICAID ==
[~2019-04-27] VITALS: Ht 157.5 cm; Wt 75.9 kg
--- NOTE | ~2019-04-27 | HEMODYNAMI ---
PATIENT:SHAYLEE WILLS MEDICAL RECORD: [id number] : 53 LOCATION:[facility] ADMISSION DATE: 04/27/19 Generatedon:04/27/201916:08 Patient name: SHAYLEE WILLS Patient #: [id number] SSN: [id number] : 1955 Date of study: 04/27/2019 Page: Of Hemodynamic Procedure Report Patient Data Patient Demographics Procedure consent was obtained First Name: SHAYLEE Gender: Female Last Name: JOHANN : 1955 [facility] Initial: ARVIN Age: 63 year(s) Patient #: [id number] Race: Black SSN: [id number] Additional ID: [id number] Contact details [address]: [address] [place] [address] ROAD State: [place] City: [place] Zip code: [address] Past Medical History Allergies Allergen Reaction Date Comments Reported Other allergy 04/27/2019 aspirin, codeine/ sulfa Admission Admission Data Admission Date: 04/27/2019 Admission Time: 9:48 Arrival Date: 04/27/2019 Arrival Time: 0:00 Admit Source: Other Insurance Payor: Medicare [facility] #: [id number] Height (in.): 62.5 BSA: 1.79 (m2) Height (cm.): 158.75 BMI: 30.42 (kg/m2) Weight (lbs.): 169 Weight (kg.): 76.66 Lab Results Lab Result Date: 04/27/2019 Lab Result Time: 0:00 Biochemistry Name Units Result Min Max BUN mg/dl 13 --(--*-)-- 7 18 Creatinine mg/dl 1.4 --(----)*- 0.6 1.3 eGFR ml/min 49 *-(----)-- 90 120 NONAFRICAN CBC Name Units Result Min Max Hemoglobin g/dl 11.7 *-(----)-- 13.5 17.5 Procedure Procedure Types Cath Procedure Diagnostic Procedure [facility] w/Coronaries FFR/IVUS FFR Initial Sedation Charges Moderate Sedation up to 15 minutes PCI Procedure Coronary Stent Coronary Stent Initial Procedure Description Procedure Date Procedure Date: 04/27/2019 Procedure Start Time: 15:36 Procedure End Time: 16:03 Procedure Staff Name Function Abdiel Fernando MD Performing Physician Li Barba RT Monitor Janae Balbuena RT Monitor Alfredo Pappas RN Nurse Kaylynn Toscano RT Scrub Indication Angina Procedure Data Cath Procedure Fluoroscopy Diagnostic fluoroscopy Total fluoroscopy Time: 4.3 time: 4.3 min min Diagnostic fluoroscopy Total fluoroscopy dose: dose: 1078 mGy 1078 mGy Contrast Material Contrast Material Type Amount (ml) Isovue 300 114 Entry Location Entry Primary Successful Side Size Upsize Upsize Entry Closure Barlow ccessful Closure Location (Fr) 1 (Fr) 2 (Fr) Remarks Device Remarks Radial Right 6 Fr Mechanical artery Short Compression Estimated blood loss: 10 ml Diagnostic catheters Device Type Used For End Catheter Placement DIAGNOSTIC [place] 110cm 5 Procedure Fr catheter ([id number]) Procedure Complications No complications Procedure Medications Medication Administration Route Dosage 0.9% NaCl I.V. 100 ml/hr Oxygen etCO2 Nasal cannula 2 l/min Heparin Flush Bag added to field 2 bags (1000units/500ml NS) Lidocaine 2% added to field 20 Radial Cocktail added to field 1 syringe (Verapamil 2mg/Nitro 400mcg/Heparin 1500units) Versed I.V. 2 mg Fentanyl I.V. 100 mcg Radial Cocktail I.A. 1 syringe (Verapamil 2mg/Nitro 400mcg/Heparin 1500units) Versed I.V. 2 mg Fentanyl I.V. 100 mcg Heparin Bolus I.V. 4000 units Integrilin (Bolus I.V. 6.8 ml 2mg/ml) Integrilin (Bolus wasted 3.2 ml 2mg/ml) Plavix P.O. 600 mg Hemodynamics Rest BSA: 1.79 (m2) HGB: 11.7 (g/dl) O2 Consumption: Estimated: 170.41 (ml/min) O2 Co nsumption indexed: Estimated:95.2 (ml/min/m) Heart Rate: 74 (bpm) Snapshots Pre Cath Intra NCS Post Cath Vital Signs Time Heart Resp SPO2 etCO2 NIBP (mmHg) Rhythm Pain Sedation Rate (ipm) (%) (mmHg) Status Level (bpm) 15:25:13 69 15 99 0 141/78(102) NSR 0 (11) 10(A) , No pain 15:29:19 69 28 97 41.9 119/79(93) NSR 0 (11) 10(A) , No pain 15:33:28 69 16 93 40.4 112/65(79) NSR 0 (11) 10(A) , No pain 15:37:37 72 14 98 41.2 117/70(92) NSR 0 (11) 10(A) , No pain 15:41:40 80 15 82 0 100/66(76) NSR 0 (11) 10(A) , No pain 15:45:46 81 17 90 43.5 101/60(75) NSR 0 (11) 10(A) , No pain 15:49:49 79 19 96 44.2 110/68(86) NSR 0 (11) 10(A) , No pain 15:53:55 100 23 97 18.7 116/75(94) NSR 0 (11) 10(A) , No pain 15:58:03 80 18 99 26.2 102/74(96) NSR 0 (11) 10(A) , No pain 16:02:11 81 16 100 38.9 113/66(86) NSR 0 (11) 10(A) , No pain Medications Time Medication Route Dose Verified Delivered Reason Not es Effectiveness by by 15:28:50 0.9% NaCl I.V. 100 Alfredo Alfredo Per physician ml/hr Elyse Pappas RN RN 15:28:59 Oxygen etCO2 2 l/min Alfredo Alfredo for low 02 sats Nasal Lorigan Lorigan cannula RN RN 15:29:10 Heparin Flush added 2 bags Alfredo Alfredo used for Bag to Lorigan Lorigan procedure (1000units/500ml field RN RN NS) 15:29:19 Lidocaine 2% added 20ml Alfredo Alfredo for local to vial Lorigan Lorigan anesthetic field HOWARD RN 15:29:29 Radial Cocktail added 1 Alfredo Alfredo used for (Verapamil to syringe Lorigan Lorigan procedure 2mg/Nitro field RN RN 400mcg/Heparin 1500units) 15:37:13 Versed I.V. 2 mg Alfredo Alfredo for sedation Elyse Pappas RN RN 15:37:22 Fentanyl I.V. 100 mcg Alfredo Alfredo for sedation Elyse Pappas RN RN 15:42:29 Radial Cocktail I.A. 1 Alfredo Abdiel for (Verapamil syringe Elyse Fernando MD vasodilation 2mg/Nitro RN 400mcg/Heparin 1500units) 15:42:38 Versed I.V. 2 mg Alfredo Alfredo for sedation Elyse Pappas RN RN 15:42:44 Fentanyl I.V. 100 mcg Alfredo Alfredo for sedation Elyse Pappas RN RN 15:53:58 Heparin Bolus I.V. 4000 Alfredo Alfredo for units Elyse Pappas anticoagulation RN RN 15:54:20 Integrilin I.V. 6.8 ml Alfredo Alfredo for (Bolus 2mg/ml) Elyse Pappas antiplatelet RN RN therapy 15:54:33 Integrilin wasted 3.2 ml Alfredo Alfredo to sharp's (Bolus 2mg/ml) Elyse Pappas RN RN 16:03:30 Plavix P.O. 600 mg Alrfedo Alfredo for Elyse Pappas antiplatelet RN RN therapy Procedure Log Time Note 15:11:01 Informed consent obtained and on chart 15:14:14 Indication : Angina 15:14:25 Procedure Status Elective Heart Cath (OP). 15:14:28 Alfredo Pappas RN sent for patient. Start room use. 15:14:31 Time tracking: Regular hours (M-F 7:00 - 5:00) 15:14:39 Plan of Care:Hemodynamics will remain stable., Cardiac rhythm will remain stable., Comfort level will be maintained., Respiratory function will remain adequate., Patient/ family verbilizes understanding of procedure., Procedure tolerated without complication., Recovers from procedure without complications.. 15:16:36 Lab Result : eGFR NONAFRICAN 49 ml/min 15:16:36 Lab Result : Creatinine 1.4 mg/dl 15:16:36 Lab Result : BUN 13 mg/dl 15:16:36 Lab Result : Hemoglobin 11.7 g/dl 15:18:51 Patient Height : 62.5 inches 15:18:59 Patient Weight : 169 lbs 15:19:17 Arrival Date: 04/27/2019 12:00:00 AM 15:19:21 Admit Source: Other 15:19:43 Insurance Payor : Medicare 15:21:47 Patient received from Pre/Post Procedure Room to CCL 1 Alert and oriented. Tansferred to table in Supine position. 15:21:50 Warm blankets applied, and irwin hugger turned on for patient comfort. 15::52 Correct patient and procedure confirmed by team. 15::53 ECG and BP/O2 sat monitors applied to patient. 15::26 ACC Patient presents with Stable Angina CCS Anginal Class 2--Slight limitation of ordinary activity. 15:24:09 Vital chart was started 15::12 Baseline sample Acquired. 15::23 Rhythm: sinus rhythm 15::26 Full Disclosure recording started 15::27 - 15:24:36 H&P Date Dictated: 04/27/2019 H&P Addendum completed by physician on da y of procedure. (MUST COMPLETE FOR ALL OUTPATIENTS), New H&P dictated by physician.. 15:24:39 Pre-procedure instructions explained to patient. 15:24:40 Pre-op teaching completed and patient verbalized understanding. 15:24:44 Family in patients room. 15:24:47 Patient NPO since Midnight. 15:25:24 Patient allergic to Other allergyaspirin, codeine/ sulfa 15:25:36 Is the patient allergic to Iodine/contrast media? No. 15::38 Was the patient premedicated? Yes 15::51 Risk of Mortality: 0.1 15:25:57 Risk of blood transfusion: 3.0 15:26:02 Risk of [place]: 2.1 15:26:07 Lab results completed and on chart. 15:26:39 Stress Test: yes; abnormal anteriorly and apically 15::57 Is patient on blood thinner?No 15:28:05 Patient diabetic? No. 15:28:13 Patient not . Patient is over age 55. 15:28:37 ----Pre-sedation anethsthesia assessment.---- 15::42 Snore? Yes 15::44 Sleep apnea? Yes 15:28:46 Deviated septum? No 15:28:48 Opens mouth fully? Yes 15:28:50 0.9% NaCl 100 ml/hr I.V. was administered by Alfredo Pappas RN; Per physician; Verbal order read back and verified. 15:28:50 Sticks out tongue? Yes 15:28:59 Oxygen 2 l/min etCO2 Nasal cannula was administered by Alfredo Pappas RN; for low 02 sats; Verbal order read back and verified. 15:29:10 Heparin Flush Bag (1000units/500ml NS) 2 bags added to field was administered by Alfredo Pappas RN; used for procedure; Verbal order read back and verified. 15:29:19 Lidocaine 2% 20ml vial added to field was administered by Alfredo Pappas RN; for local anesthetic; Verbal order read back and verified. 15:29:29 Radial Cocktail (Verapamil 2mg/Nitro 400mcg/Heparin 1500units) 1 syring e added to field was administered by Alfredo Pappas RN; used for procedure; Verbal order read back and verified. 15:30:04 Airway obstruction? Yes obstructive sleep apnea syndrome 15:30:12 Dentures? Yes in tight 15:30:37 Modified Alvin's test Ulnar < 7 seconds 15:30:57 Patient pain scale 0/10 ?. 15:31:13 IV patent on arrival in left forearm with 0.9% NaCl at [facility]. 15:31:24 Right Radial & Right Groin area was prepped with chlora-prep and draped in sterile fashion 15:31:26 Alarms reviewed by R. N. 15:31:37 Sharps counted by scrub and verified by R.N. 15:32:18 --------ALL STOP TIME OUT------ 15:32:18 Final Timeout: patient, procedure, and site verified with staff and physician. All members of the team are in agreement. 15:32:20 Right Radial & Right Groin site verified by team. 15:32:23 Fire Safety Assessment: A--An alcohol-based skin anteseptic being used preoperatively., C--Open oxygen or nitrous oxide is being used., D--An ESU, laser, or fiber-optic light is being used. 15:32:28 Physical assessment completed. ASA score P 2 - A patient with mild systemic disease as per Abdiel Fernando MD. 15:32:33 3a) 45-59 Moderately reduced kidney function. 15:32:37 Maximum allowable contrast dose (3.7 X eGFR X 0.75)136 ml. 15:32:40 Sedation plan: IV Moderate Sedation Medication:Versed, Fentanyl 15:33:06 Pre procedure: right dorsailis pedis pulse 1+ Palpable, but thready & weak; easily obliterated 15:33:12 Use device set Radial Dx or PCI 15:33:13 ACIST Syringe (38782) opened to sterile field. 15:33:16 Bag Decanter (2001S) opened to sterile field. 15:33:16 ACIST Hand Control (46694) opened to sterile field. 15:33:16 ACIST Manifold (16066) opened to sterile field. 15:33:18 Tegaderm 4 x 4 (1626W) opened to sterile field. 15:33:20 Medline Cath Pack ([id number]) opened to sterile field. 15:33:20 MBraiPharro Media Wrist Support ([id number]) opened to sterile field. 15:33:22 EMERALD Guide Wire (173-292) opened to sterile field. 15:33:22 SHEATH 6FR RAIN (6181734) opened to sterile field. 15:35:55 Procedure started. 15:36:05 Local anesthetic to right radial artery with Lidocaine 2% by Abdiel Fernando MD.INITIAL ACCESS ONLY 15:37:10 Zero performed for pressure channel P1 15:37:13 Versed 2 mg I.V. was administered by Alfredo Pappas RN; for sedation; Verbal order read back and verified. 15:37:22 Fentanyl 100 mcg I.V. was administered by Alfredo Pappas RN; for sedation; Verbal order read back and verified. 15:41:29 A 6 Fr Short sheath was inserted into the Right Radial artery 15:42:29 Radial Cocktail (Verapamil 2mg/Nitro 400mcg/Heparin 1500units) 1 syring e I.A. was administered by Abdiel Fernando MD; for vasodilation; Verbal order read back and verified. 15:42:30 A DIAGNOSTIC [place] 110cm 5 Fr catheter (233235) was advanced over the wire and used for Procedure. 15:42:38 Versed 2 mg I.V. was administered by Alfredo Lorigan RN; for sedation; Verbal order read back and verified. 15:42:44 Fentanyl 100 mcg I.V. was administered by Alfredo Pappas RN; for sedation; Verbal order read back and verified. 15:43:05 LV gram done using [place] 15:43:35 EF : 55 % 15:43:41 Injector settings: Ml/sec: 5, Volume: 15, 15:43:59 LCA angiography performed. 15:44:06 Injector settings: Ml/sec: 3, Volume: 5, 15:46:04 RCA angiography performed. 15:46:25 Injector settings: Ml/sec: 3, Volume: 5, 15:48:09 TrovaGenerata Plus pressure wire (94627H) opened to sterile field. 15:48:10 INFLATOR Merit BasixCompak (OW5865) opened to sterile field. 15:48:25 GUIDE 6FR XBLAD 3.5 catheter ([id number]) opened to sterile field. 15:48:37 Catheter exchanged over wire. 15:49:04 6 Fr xblad 3.5 guide catheter was inserted over the wire 15:49:35 FFR/IFR wire advanced. 15:50:39 Wire advanced across lesion. 15:51:57 mLAD lesion measured at 0.88 with IFR 15:53:51 Pre PCI Site: [place] mLAD has 70% stenosis. 15:53:58 Heparin Bolus 4000 units I.V. was administered by Alfredo Pappas RN; for anticoagulation; Verbal order read back and verified. 15:54:20 Integrilin (Bolus 2mg/ml) 6.8 ml I.V. was administered by Alfredo Pappas RN; for antiplatelet therapy; Verbal order read back and verified. 15:54:33 Integrilin (Bolus 2mg/ml) 3.2 ml wasted was administered by Alfredo Pappas RN; to sharp's; Verbal order read back and verified. 15:54:40 Place stent Inflation Number: 1 A KIN RX 2.5 x 15 stent ([id number]) was prepped and advanced across the Mid LAD . The stent was deployed at 9 EVELIN for 0:10 (min:sec) . 15:55:16 Stent catheter was removed intact over wire. 15:56:01 mLAD lesion measured at 1.00 with IFR post stent placement. 15:56:28 Wire removed. 15:56:29 Guide catheter removed. 15:57:28 Sheath removed intact; hemostasis achieved with Mechanical Compression to the Right Radial artery. 15:57:40 ZEPHYR REGULAR TR BAND (456048) opened to sterile field. 15:57:43 Procedure ended.(Physican Out) 15:59:01 Contrast amount:Isovue 300 114ml. 15:59:04 Maximum allowable dose exceeded? No. 15:59:17 Fluoroscopy time 04.30 minutes. 15:59:23 Fluoroscopy dose: 1078 mGy 15:59:23 Flurop Dose total: 1078 15:59:29 Dose Area Product 56871 mGy/cm. 15:59:32 Sharps counted by scrub and verified by R.N. 15:59:38 [place] band inflated with 7cc of air. 15:59:41 Insertion/operative site no bleeding no hematoma. 15:59:50 Post right radial artery:stable 15:59:54 Post Procedure Pulses reassessed and unchanged 15:59:59 Post-procedure physical assessment completed. ASA score P 2 - A patient with mild systemic disease as per Abdiel Fernando MD. 16:00:05 Post procedure rhythm: unchanged. 16:00:09 Estimated blood loss: 10 ml 16:00:12 Post procedure instruction explained to patient.Patient verbalizes understanding. 16:00:12 Patient needs reinforcement of post procedure teaching. 16:00:24 ACT drawn and resulted at 296 seconds. (normal therapeutic range 180-24 0 seconds). 16:01:15 Procedure type changed to Cath procedure, Diagnostic procedure, [facility], C w/Coronaries, FFR/IVUS, FFR Initial, Sedation Charges, Moderate Sedation up to 15 minutes, PCI procedure, Coronary Stent, Coronary Stent Initial 16:01:58 Procedure and supply charges have been captured, reviewed, submitted an d are correct. 16:03:18 Procedure Complication : No complications 16:03:22 Vital chart was stopped 16:03:25 [facility] Findings: MVD- PCI performed (see procedure note) 16:03:27 Operative report dictated upon procedure completion. 16:03:28 See physician's report for complete and final results. 16:03:30 Plavix 600 mg P.O. was administered by Alfredo Pappas RN; for antiplatelet therapy; Verbal order read back and verified. 16:03:31 Report given to Pre/Post Procedure Room. 16:03:35 Patient transfered to Pre/Post Procedure Room with Stretcher. 16:03:58 Procedure ended. 16:03:58 Full Disclosure recording stopped 16:05:36 ACC-PCI Only Patient was given prescriptions, or instructed by Abdiel Fernando MD to start/continue the following medications upon discharge: Plavix 16:05:41 End room use (Document Last) Intervention Summary Intervention Notes Time ActionType Lesion and Equipment Used Action# Pressure Duration Attributes 15:54:40 Place stent Mid LAD KIN RX 2.5 x 1 9 00:10 15 stent ([id number]) Device Usage Item Name Manufacture Quantity Catalog Hospital Part Current Minimal Lot# / Number Charge Number Stock Stock Serial# Code ACIST Syringe Acist 1 93492 431739 531201 363022 20 (57814) Medical Systems Inc Bag Decanter Microtek 1 2001S 725956 13212 707195 5 (2001S) Medical Inc. ACIST Hand Acist 1 62002 433096 233165 905272 5 Control Medical (02140) Systems Inc ACIST Manifold Acist 1 72437 078667 315833 637404 5 (33821) Medical Systems Inc Tegaderm 4 x 4 3M 1 1626W 567431 113297 947757 5 (1626W) Medline Cath Medline 1 [id number] 029447 36509 150360 5 Pack ([id number]) MBrace Wrist Advanced 1 140-0250-00 310544 43372 793451 5 Support Vascular (234403785) Dynamics EMERALD Guide Cardinal 1 502-455 884244 659598 574462 5 Wire (502-455) Health SHEATH 6FR Cardinal 1 5978941 668860 8977972 675484 5 RAIN (7692735) Health DIAGNOSTIC Terumo 1 40-6653 343795 279093 332367 5 [place] 110cm 5 Fr catheter (045424) Hanover Han[place] 1 57600G 475618 144864740 758392 5 Verrata Plus pressure wire (43936A) INFLATOR Merit Merit 1 XS9488 714321 515821 669373 15 BasixActus Digital Medical (VG4453) GUIDE 6FR Cardinal 1 [id number] 004530 404770 858615 10 XBLAD 3.5 Health catheter (94739002) KIN RX 2.5 x Medtronic 1 [id number] 317424 3144753 024485 5 [id number] 15 stent ([id number]) ZEPHYR REGULAR Cardinal 1 985644 209918 2160078 632065 5 TR [facility] (926984) Signature Audit [place] Stage Time Signature Unsigned Intra-Procedure 04/27/2019 Janae 4:07:43 PM Sree RT(R) (CV) Intra-Procedure 04/27/2019 Alfredo 4:08:12 PM Elyse HOWARD Intra-Procedure 04/27/2019 Abdiel Fernando 4:08:47 PM [facility] [address] [facility], [facility]
[~2019-04-27 09:48] MED LIST changes: -HYDROCODON-ACE1 EA10 PO; -ISOSORBIDE MONO30 M1 PO; -LASIX20 MG PO; -TALWIN NX1 TAB PO; -VIBRAMYCIN 100100 MG PO
[2019-04-27] MEDS ORDERED: ISOSORBIDE MONO30 M1 PO (10:24)
[2019-04-27] MEDS ORDERED: K-DUR20 MEQ PO (10:26)
[2019-04-27] MEDS ORDERED: LASIX20 MG PO (10:26)
[2019-04-27] MEDS ORDERED: HYDROCODON-ACE1 EA10 PO (10:27)
[2019-04-27 10:44] VITALS: BP 124/61; Ht 157.5 cm; Wt 75.9 kg
[2019-04-27 11:29] LABS: BASOPHILS 0.5 % (0-2); EOSINOPHILS 3.8 % (0-7); HEMOGLOBIN 11.7 g/dL (12-16); IMMATURE GRANULOCYTES 0.2 % (0-5); LYMPHOCYTES 26.3 % (15-50); MCH 21.4 pg (26.0-34.0); MCHC 31.6 g/dL (31.0-37.0); MCV 67.5 fL (80.0-100.0); MEAN PLATELET VOLUME 10.1 fL (7.4-10.4); MONOCYTES 9.3 % (2-11); NEUTROPHILS 59.9 % (40-80); PLATELET COUNT 386 10x3/uL (130-400); RBC 5.48 10x6/uL (4.00-5.40); RDW 17.1 % (11.5-14.5); WBC 4.2 10x3/uL (4.8-10.8)
[2019-04-27 11:50] LABS: ANION GAP 12.5 mmol/L (8-16); CALCIUM 9.6 mg/dL (8.5-10.1); CARBON DIOXIDE 26.8 mmol/L (21.0-32.0); CREATININE - SERUM 1.4 mg/dL (0.6-1.3); LDL-HDL RATIO 1.6 ratio (1.5-3.5); POTASSIUM - SERUM 4.3 mmol/L (3.5-5.1)
--- NOTE | 2019-04-27 16:15 | NUR ---
PT ARRIVED BY STRETCHER. PLACED ON MONITORS. ASSESSMENT COMPLETED. CALL LIGHT WITHIN REACH.
[2019-04-27] MEDS ORDERED: PLAVIX75 MG PO (16:26)
--- NOTE | 2019-04-27 16:30 | NUR ---
PT SITTING UP AND AWAKE AND ALERT. VSS. PT SET UP WITH SANDWICH TRAY AND DRINK. DENIES NAUSEA/PAIN AT THIS TIME. VSS.
--- NOTE | 2019-04-27 17:00 | NUR ---
PT SITTING UP WATCHING TV. VSS. RIGHT WRIST Z BAND IN PLACE. NO BLEEDING/HEMATOMA NOTED. VSS.
--- NOTE | 2019-04-27 17:30 | NUR ---
PT SITTING UP WATCHING TELEVISION. DENIES NAUSEA/PAIN AT THIS TIME. VSS. RIGHT WRIST Z BAND IN PLACE. NO BLEEDING/HEMATOMA NOTED.
--- NOTE | 2019-04-27 18:10 | NUR ---
PT RESTING COMFORTABLY. VSS. RIGHT WRIST Z BAND IN PLACE. NO BLEEDING/HEMATOMA NOTED.
--- NOTE | 2019-04-27 19:15 | NUR ---
4cc OF AIR REMOVED FROM Z BAND. TOLERATED WELL. VSS. NO BLEEDING/HEMATOMA NOTED. CALL LIGHT WITHIN REACH. FAMILY AT BEDSIDE.
--- NOTE | 2019-04-27 19:23 | NUR ---
4cc OF AIR REMOVED FROM Z BAND. NO BLEEDING/HEMATOMA NOTED. CALL LIGHT WITHIN REACH. FAMILY AT BEDSIDE. WILL MONITOR FOR BLEEDING.
--- NOTE | 2019-04-27 19:45 | NUR ---
Z BAND REMOVED AND DRESSING APPLIED. NO BLEEDING/HEMATOMA NOTED. RIGHT WRIST BRACE IN PLACE. PIV D/C'D WITH CATH TIP INTACT. DISCUSSED DISCHARGE INSTRUCTIONS WITH PT AND PT'S FAMILY. THEY VOICED UNDERSTANDING. PT INSTRUCTED TO GET UP AND DRESSED. FAMILY AT BEDSIDE TO ASSIT.
--- NOTE | 2019-04-27 20:00 | NUR ---
RIGHT WRIST DRESSING C/D/I. NO S/S OF HEMATOMA NOTED. PT TAKEN TO RESTROOM. VOIDED WITHOUT DIFFICULTY. TAKEN OUT TO VEHICLE BY WHEELCHAIR. NO S/S OF DISTRESS NOTED. ALL BELONGINGS AND PAPERWORK IN HAND.
--- NOTE | 2019-04-28 09:45 | OP ---
PATIENT NAME: SHAYLEE WILLS MEDICAL RECORD: [id number] :53 LOCATION:D.CAT ADMISSION DATE: SURGEON: IVONNE CHAN MD DATE OF OPERATION: 04/27/2019 PROCEDURES: 1. PTCA stent LAD. 2. IFR. 3. Left heart catheterization. 4. Selective coronary angiography. 5. Left ventriculogram. DESCRIPTION OF PROCEDURE: After informed consent was obtained and after a detailed description of risks, benefits as well as alternative therapies, the patient elected to proceed with angiogram and angioplasty. The right radial area was prepped and draped in normal sterile fashion. Right radial artery was cannulated via modified Seldinger technique with placement of 6-Israeli sheath. All catheters exchanged through this sheath. FINDINGS: Left ventriculogram was performed in standard 30-degree [place] view, reveals good cardiac wall motion throughout all segments. Overall ejection fraction estimated 60%. SELECTIVE CORONARY ANGIOGRAPHY: 1. Left main is with no significant angiographic disease. 2. Left anterior descending has a previously placed stent in the diagonal that is widely patent; however, the distal LAD has 70% stenosis and IFR was abnormal at 0.88. This correlates with perfusion defect on nuclear stress test. 3. Left circumflex has moderate irregularities, but no flow-limiting stenosis. 4. The right coronary has previously placed stent that is widely patent with no significant restenosis. No disease elsewise. PTCA STENT OF THE LAD: The stent used was a 2.5 x 15 mm Calvin. Result was 0% residual stenosis. Post-stenting, IFR normalized to 1.0. OVERALL IMPRESSION: Successful percutaneous transluminal angioplasty stent of the left anterior descending going from 70% initial stenosis with abnormal IFR to 0% residual stenosis with normalization of the IFR after stenting. TRANSINT:[id number] Voice Confirmation ID: [id number] DOCUMENT ID: [id number] IVONNE CHAN MD at 0945 CC: [id number] DICTATION DATE: 04/27/19 1603 UNIVERSITY COUNSELOR: 04/27/19 2301 DEP CLI 04/27/19 [place] [address]
== END 2019-04-27 20:00 | disposition home or self-care (01) ==
LOC: D.CATH 09:48
PROVIDERS: ATTEND Internal Medicine Interventional Cardiology
DX: I25.110 Atherosclerotic heart disease of native coronary artery with unstable angina pectoris (principal); R94.30 Abnormal result of cardiovascular function study, unspecified; R06.02 Shortness of breath
CPT/HCPCS: C9600; 93458; 93571

== ENCOUNTER 2019-05-04 09:39 | Emergency (ER) | payer MEDICARE, MEDICAID ==
[~2019-05-04] VITALS: Ht 157.5 cm; Wt 63.6 kg
[~2019-05-04 09:39] MED LIST changes: +HYDROCODON-ACE1 EA10 PO; +ISOSORBIDE MONO30 M1 PO; +LASIX20 MG PO
[2019-05-04 09:43] VITALS: Ht 157.5 cm; Wt 63.6 kg
[2019-05-04] MEDS ORDERED: VIBRAMYCIN 100100 MG PO (11:00)
[2019-05-04] MEDS ORDERED: TALWIN NX1 TAB PO (11:00)
[2019-05-04 11:52] VITALS: BP 129/70
== END 2019-05-04 11:53 | disposition home or self-care (01) ==
LOC: D.ER 09:39
DX: L03.114 Cellulitis of left upper limb (principal); I10 Essential (primary) hypertension; E11.9 Type 2 diabetes mellitus without complications

== ENCOUNTER 2019-05-18 11:46 | Inpatient (IN) | payer MEDICARE, MEDICAID ==
[~2019-05-18] VITALS: Ht 157.5 cm; Wt 74.1 kg
[~2019-05-18 11:46] MED LIST changes: +TALWIN NX1 TAB PO; +VIBRAMYCIN 100100 MG PO
--- NOTE | 2019-05-18 16:25 | NUR ---
LABS DRAWN PER NURSING PROFESSOR
[2019-05-18 16:44] LABS: BASOPHILS 0.7 % (0-2); EOSINOPHILS 2.9 % (0-7); HEMATOCRIT 37.5 % (36.0-48.0); HEMOGLOBIN 11.9 g/dL (12-16); LYMPHOCYTES 28.3 % (15-50); MCH 21.4 pg (26.0-34.0); MCHC 31.7 g/dL (31.0-37.0); MCV 67.4 fL (80.0-100.0); MEAN PLATELET VOLUME 9.8 fL (7.4-10.4); MONOCYTES 7.5 % (2-11); NEUTROPHILS 60.6 % (40-80); PLATELET COUNT 411 10x3/uL (130-400); RBC 5.56 10x6/uL (4.00-5.40); RDW 16.7 % (11.5-14.5); WBC 4.4 10x3/uL (4.8-10.8)
[2019-05-18 16:46] LABS: INR 1.09 (0.85-1.17); PROTIME 13.6 SECONDS (11.6-15.0)
[2019-05-18 16:47] LABS: APTT 29.1 SECONDS (22.8-39.4)
[2019-05-18 17:03] LABS: ANION GAP 14.3 mmol/L (8-16); CALCIUM 9.7 mg/dL (8.5-10.1); CARBON DIOXIDE 26.7 mmol/L (21.0-32.0); CREATININE - SERUM 1.4 mg/dL (0.6-1.3)
[2019-05-18 17:11] LABS: ALBUMIN 3.9 g/dL (3.4-5.0); BILIRUBIN - TOTAL 0.21 mg/dL (0.2-1.3); PROTEIN - SERUM 8.5 g/dL (6.4-8.2)
[2019-05-18 18:36] VITALS: BP 154/83
--- NOTE | 2019-05-18 18:37 | NUR ---
REPORT CALLED TO LEE GONZALES
--- NOTE | 2019-05-18 19:00 | NUR ---
TRANSPORTED TO ROOM #1453 CONDITION STABLE
[2019-05-18 19:29] VITALS: BP 127/70; Ht 157.5 cm; Wt 74.1 kg
--- NOTE | 2019-05-18 19:43 | NUR ---
RECIEVED REPORT FROM OUTGOING NURSE. PT ARRIVED BY WHEELCHAIR. INITIAL VSS, AAO4, NO S/S OF DISTRESS. ALTHOUGH PT STATES PAIN 01/06. WILL CALL AND NOTIFY DR. SANDY ABOUT RESTARTING PT'S MEDS. SWELLING NOTED DISTALLY ON RFA. CONSENT SIGNED FOR PSEUDOANEURYSM REPAIN IN THE AM. PT SINUS 78 ON TELE. NPO AFTER MIDNIGHT. WILL CPOC. CL WITHIN REACH, BED IN LOW, SR UP X2.
--- NOTE | 2019-05-18 19:51 | NUR ---
SPOKE WITH DR. RODRIGUEZ. HE STATED TO START ALL PT'S HOME MEDS INCLUDING PLAVIX.
[2019-05-18 20:00] VITALS: BP 127/70
[2019-05-19] VITALS (7 sets, daily range): BP systolic 101–132; BP diastolic 58–76
[2019-05-19 05:10] LABS: BASOPHILS 0.2 % (0-2); EOSINOPHILS 3.1 % (0-7); HEMATOCRIT 35.9 % (36.0-48.0); HEMOGLOBIN 11.1 g/dL (12-16); IMMATURE GRANULOCYTES 0.2 % (0-5); LYMPHOCYTES 27.5 % (15-50); MCH 20.6 pg (26.0-34.0); MCHC 30.9 g/dL (31.0-37.0); MCV 66.5 fL (80.0-100.0); MEAN PLATELET VOLUME 9.8 fL (7.4-10.4); MONOCYTES 13.2 % (2-11); NEUTROPHILS 55.8 % (40-80); PLATELET COUNT 391 10x3/uL (130-400); RDW 16.7 % (11.5-14.5); WBC 4.2 10x3/uL (4.8-10.8)
[2019-05-19 05:36] LABS: ALBUMIN 3.4 g/dL (3.4-5.0); ANION GAP 10.4 mmol/L (8-16); BILIRUBIN - TOTAL 0.24 mg/dL (0.2-1.3); CALCIUM 9.4 mg/dL (8.5-10.1); CARBON DIOXIDE 28.7 mmol/L (21.0-32.0); CREATININE - SERUM 1.4 mg/dL (0.6-1.3); POTASSIUM - SERUM 4.1 mmol/L (3.5-5.1)
--- NOTE | 2019-05-19 09:29 | NUR ---
PT TO OR AT THIS TIME.
--- NOTE | 2019-05-19 12:24 | NUR ---
1215 - PT STATES PAIN IS "TERRIBLE", CANNOT/WILL NOT PROVIDE NUMBER. PT HAS HAD PAID MED INTERVENTION, D/C TO FLOOR PER ANESTHESIA DUE TO DANGER OF LOWER RESP RATE.
--- NOTE | 2019-05-19 12:41 | NUR ---
RECEIVED PT BACK TO ROOM 2122, PT A/O X4, C/O PAIN, ALREADY HAD MAX DOSE OF PAIN MEDICATION IN RECOVERY. VITAL SIGNS STABLE, PLACED PT ON FREQUENT VITAL SIGNS, DRESSING TO RT WRIST CDI. PT DENIES ANY OTHER NEEDS AT THIS TIME. CALL LIGHT IN REACH, NAD NOTED, WILL CONTINUE TO MONITOR.
--- NOTE | 2019-05-19 14:58 | MORECARE ---
CASE MANAGEMENT DISCHARGE SUMMARY PATIENT: SHAYLEE WILLS UNIT: [id number] ADM DATE: 05/18/19 AGE: 63 : 53 SEX: F ROOM/BED: D.8353 AUTHOR: WICHO STRATTON PHYSICIAN: REFERRING PHYSICIAN: NIKOLAS GUZMAN MD DATE OF SERVICE: 05/19/19 Discharge Plan Patient Name: SHAYLEE WILLS Facility: [facility]:[place] : 1955 Planned Disposition: Home Anticipated Discharge Date: 05/21/19 Discharge Date: Expected LOS: 3 Initial Reviewer: [email or web address] Initial Review Date: 05/18/2019 Generated: 05/19/19 3:57 pm Comments DCP- Discharge Planning Updated by [email or web address]: Emilie Way on 05/19/19 1:[address] DC PLAN: Return home independently. Son lives with her. ANTICIPATED DC NEEDS: Denied known dc needs. CM met with patient to complete initial dc planning assessment. CM educated patient on the CM role and verbal consent given by patient to complete assessment. CM verified patient's address, phone number, and emergency contact phone numbers. Patient lives at home independently. Her adult son lives with her. She has a lot of family support if and when needed. At discharge patient plans to return home and feels this is a safe discharge. CM discussed availability of home health, rehab services, and medical equipment. Patient denied known discharge needs at this time. Patient reports her friend Bennett will transport her home at time of discharge. CM will continue to follow and will assist as needed with dc plans/needs. Emilie Way RN, [facility] DCPIA - Discharge Planning Initial Assessment Updated by [email or web address]: Emilie Way on 05/19/19 2:53 pm * Is the patient Alert and Oriented? Yes * PCP * Pharmacy [facility] [address] * Preadmission Environment Home with Family * ADLs Independent * Equipment None * List name and contact numbers for known caregivers / representatives who currently or will assist patient after discharge: Olena Fontenot - [facility] - [phone] * Verbal permission to speak to the caregivers and representatives has been obtained from the patient. Yes * Community resources currently utilized None * Additional services required to return to the preadmission environment? No * Can the patient safely return to the preadmission environment? Yes * Has this patient been hospitalized within the prior 30 days at any hospital? No Patient Name: SHAYLEE WILLS Page [id number] at 1458 All edits/amendments must be made on the electronic document DICTATION DATE: 05/19/191456 ASSISTANT BOILER OPERATOR: ABY 05/19/191456 RPT#: [id number] DC DATE: STATUS: ADM IN [facility] [address] [place] [address] END OF REPORT
--- NOTE | 2019-05-19 15:46 | NUR ---
NORCO GIVEN FOR PAIN LEVEL OF 10/10. ALSO PROVIDED PT WITH CUP OF ICE WATER. PT DENIES ANY OTHER NEEDS AT THIS TIME. CALL LIGHT IN REACH, FAMILY AT BEDSIDE, NAD NOTED.
[2019-05-20 04:00] VITALS: BP 136/79
[2019-05-20 08:00] VITALS: BP 132/72
--- NOTE | 2019-05-20 08:15 | NUR ---
ALERT AND ORIENTED. TELEMERTY SHOWS SR. DRSG TO RIGHT RADIAL. LEFT FA SL. UP AB CHARLENE. CALL LIGHT IN REAC AND SR UP. WILL MONITOR
--- NOTE | 2019-05-20 10:14 | NUR ---
I have reviewed this patient and I concur with the Shift Assessment completed by the Licensed Practical Nurse today this shift.
[2019-05-20 12:00] VITALS: BP 99/68
--- NOTE | 2019-05-20 15:47 | OP ---
PATIENT NAME: SHAYLEE WILLS MEDICAL RECORD: [id number] :53 LOCATION:D.M2 D.2123 ADMISSION DATE:05/18/19 SURGEON: FERNANDO NAM MD DATE OF OPERATION: 05/19/2019 SURGEON: Fernando Nam MD SAFETY ADMINISTRATOR: None. PROCEDURE PERFORMED: Excision of pseudoaneurysm and ligation of right radial artery. PREOPERATIVE DIAGNOSIS: Pseudoaneurysm following cardiac catheterization. POSTOPERATIVE DIAGNOSIS: Pseudoaneurysm following cardiac catheterization. ANESTHESIA: General endotracheal anesthesia. ESTIMATED BLOOD LOSS: 10 cc. DRAINS: None. SPECIMENS: Cultures taken pseudoaneurysm cavity, sent for pathology. CONDITION: Stable. DISPOSITION: Recovery room. OPERATIVE FINDINGS: With the tourniquet inflated, incision over the pseudoaneurysm was performed, no pus or purulent debris was noted, but the patient had received 2 doses of vancomycin in the previous 24 hours. Cultures were taken. The pseudoaneurysm resulted in destruction of the radial artery for a distance of about 0.5 cm leaving only the posterior wall, making primary repair impractical and as the patient had a patent ulnar artery and palmar arch by preoperative and intraoperative plethysmography, the radial artery was ligated at the wrist and just above the pseudoaneurysm. Hemostasis was ensured. Thorough antibiotic irrigation was performed. INDICATION: Radial pseudoaneurysm many weeks after radial artery cannulation, the patient on anticoagulation due to recurrent stenosis with stent placement. PROCEDURE IN DETAIL: As noted above, tourniquet was used during the initial exploration of the wound and let down. Hemostasis ensured. The procedure was well tolerated. The patient was taken to recovery room in stable condition. TRANSINT:[id number] Voice Confirmation ID: [id number] DOCUMENT ID: [id number] OPERATIVE REPORT [id number] SHAYLEE WILLS FERNANDO NAM MD at 1547 CC: IVONNE CHAN [id number] DICTATION DATE: 05/20/19 0759 NAIL MILL WORKER: 05/20/19 0858 ADM IN [place] [id number] [place] [id number]
[2019-05-20 16:34] VITALS: BP 114/68
--- NOTE | 2019-05-20 17:14 | MORECARE ---
CASE MANAGEMENT DISCHARGE SUMMARY PATIENT: SHAYLEE WILLS UNIT: [id number] ADM DATE: 05/18/19 AGE: 63 : 53 SEX: F ROOM/BED: D.9523 AUTHOR: WICHO STRATTON PHYSICIAN: REFERRING PHYSICIAN: NIKOLAS GUZMAN MD DATE OF SERVICE: 05/20/19 Discharge Plan Patient Name: SHAYLEE WILLS Facility: [facility]:[place] : 1955 Planned Disposition: Home Anticipated Discharge Date: 05/20/19 Discharge Date: Expected LOS: 2 Initial Reviewer: [email or web address] Initial Review Date: 05/18/2019 Generated: 05/20/19 6:14 pm Comments DCP- Discharge Planning Updated by [email or web address]: Emilie Way on 05/19/19 1:[address] DC PLAN: Return home independently. Son lives with her. ANTICIPATED DC NEEDS: Denied known dc needs. CM met with patient to complete initial dc planning assessment. CM educated patient on the CM role and verbal consent given by patient to complete assessment. CM verified patient's address, phone number, and emergency contact phone numbers. Patient lives at home independently. Her adult son lives with her. She has a lot of family support if and when needed. At discharge patient plans to return home and feels this is a safe discharge. CM discussed availability of home health, rehab services, and medical equipment. Patient denied known discharge needs at this time. Patient reports her friend Bennett will transport her home at time of discharge. CM will continue to follow and will assist as needed with dc plans/needs. Emilie Way RN, [facility] DCPIA - Discharge Planning Initial Assessment Updated by [email or web address]: Eimlie Way on 05/19/19 2:53 pm * Is the patient Alert and Oriented? Yes * PCP * Pharmacy [facility] [address] * Preadmission Environment Home with Family * ADLs Independent * Equipment None * List name and contact numbers for known caregivers / representatives who currently or will assist patient after discharge: Olena Fontenot - [facility] - [phone] * Verbal permission to speak to the caregivers and representatives has been obtained from the patient. Yes * Community resources currently utilized None * Additional services required to return to the preadmission environment? No * Can the patient safely return to the preadmission environment? Yes * Has this patient been hospitalized within the prior 30 days at any hospital? No Last DP export: 05/19/19 1:58 Patient Name: SHAYLEE WILLS Page [id number] at 1714 All edits/amendments must be made on the electronic document DICTATION DATE: 05/20/191713 BLEACHER SULFITE PULP: ABY 05/20/191713 RPT#: [id number] DC DATE: STATUS: ADM IN [facility] [address] [place] [address] END OF REPORT
--- NOTE | 2019-05-20 17:59 | NUR ---
PT DISCHARGED. TO PRIVATE CAR PER WHEEL CHAIR
== END 2019-05-20 18:00 | disposition home or self-care (01) | DRG 253 ==
LOC: D.ER 11:46 → D.M2 16:46 → D.SDCHOLD 05-19 12:31 → D.M2 05-19 12:31
PROVIDERS: Family Medicine; Thoracic Surgery (Cardiothoracic Vascular Surgery); ADMIT Internal Medicine Interventional Cardiology; ATTEND Internal Medicine Interventional Cardiology
PROC: 03QB0ZZ Repair Right Radial Artery, Open Approach (ICD-10-PCS; principal; 2019-05-19 08:30)
DX: I72.1 Aneurysm of artery of upper extremity (principal); L03.113 Cellulitis of right upper limb; I25.10 Atherosclerotic heart disease of native coronary artery without angina pectoris; I10 Essential (primary) hypertension

== ENCOUNTER → 2019-07-13 09:00 | Outpatient (CLI) | payer MEDICARE, MEDICAID ==
[2019-05-18 19:29] VITALS: BMI 29.9
[2019-07-13 09:51] LABS: CREATININE - SERUM 1.6 mg/dL (0.6-1.3)
== END | disposition home or self-care (01) ==
LOC: D.CT 09:00
PROVIDERS: ATTEND Urology
DX: C64.9 Malignant neoplasm of unspecified kidney, except renal pelvis (principal)

== ENCOUNTER → 2019-07-27 14:24 | Outpatient (CLI) | payer MEDICARE, MEDICAID ==
[2019-05-18 19:29] VITALS: BMI 29.9
== END | disposition home or self-care (01) ==
LOC: D.CT 14:24
PROVIDERS: ATTEND Urology
DX: R91.1 Solitary pulmonary nodule (principal)

== ENCOUNTER 2020-04-02 16:46 | Emergency (ER) | payer MEDICARE, MEDICAID ==
[~2020-04-02] VITALS: Ht 157.5 cm; Wt 77.3 kg
[2020-04-02 17:58] VITALS: Ht 157.5 cm; Wt 77.3 kg
[2020-04-02] MEDS ORDERED: CYCLOBENZAPRINE5 MG PO (20:29)
[2020-04-02 21:00] VITALS: BP 147/88
== END 2020-04-02 21:00 | disposition home or self-care (01) ==
LOC: D.ER 16:46
DX: S46.911A Strain of unspecified muscle, fascia and tendon at shoulder and upper arm level, right arm, initial encounter (principal); X58.XXXA Exposure to other specified factors, initial encounter; M25.511 Pain in right shoulder

== ENCOUNTER → 2020-08-28 22:06 | Outpatient (CLI) | payer MEDICARE, MEDICAID ==
[2020-05-05 07:38] VITALS: BMI 31.0
[~2020-08-28 22:06] MED LIST changes: +CYCLOBENZAPRINE5 MG PO
== END | disposition home or self-care (01) ==
LOC: D.MAMMO 06-14 09:00
PROVIDERS: ATTEND Family Medicine
DX: R92.8 Other abnormal and inconclusive findings on diagnostic imaging of breast (principal)